=== PATIENT | female | born 1975 | race African-American/Black ===

== ENCOUNTER 2018-04-04 18:59 | Inpatient (IN) | payer SELFPAY ==
[~2018-04-04] VITALS: Ht 157.5 cm; Wt 100.4 kg
[2018-04-04 20:04] LABS: Basophils # (auto) 0 uL; Basophils % (auto) 0.6 % (0.0-2.0); Eosinophils # (auto) 0.1 uL; Eosinophils % (auto) 0.8 % (0.0-7.0); Hematocrit 38.1 % (36.0-46.0); Lymphocytes # (auto) 3.3 uL; Lymphocytes % (auto) 46.8 % (10.0-50.0); Mean Corpuscular Hemoglobin 33.9 pg (28.0-32.0); Mean Corpuscular Hgb Conc. 34.2 g/dL (32.0-36.0); Mean Corpuscular Volume 99.2 fL (80.0-100.0); Monocytes # (auto) 0.5 uL; Monocytes % (auto) 6.6 % (0.0-12.0); Neutrophils # (auto) 3.2 uL; Neutrophils % (auto) 45.2 % (37.0-80.0); Nucleated Red Blood Cells % 0.3 %; Platelet Count (auto) 283 10^3/uL (140-450); Red Blood Cells 3.84 10^6/uL (4.0-5.20); Red Cell Distribution Width 12.7 % (11.8-14.3); White Blood Cell 7.1 10^3/uL (4.4-10.8)
[2018-04-04 20:12] LABS: Alanine Aminotransferase 16 U/L (13-56); Albumin 3.6 g/dL (3.4-5.0); Anion Gap 11 (5-15); Aspartate Aminotransferase 17 U/L (15-37); BUN/Creatinine Ratio 14.1; Blood Urea Nitrogen 12 mg/dL (7-18); Calcium 8.4 mg/dL (8.5-10.1); Carbon Dioxide 24 mmol/L (21-32); Chloride 107 mmol/L (98-107); GFR African American 93 mL/min; GFR Non-African American 77 mL/min; Glucose 102 mg/dL (74-106); Magnesium 2.2 mg/dL (1.6-2.6); Potassium 3.4 mmol/L (3.5-5.1); Sodium 142 mmol/L (136-145)
[2018-04-04 20:17] LABS: Alkaline Phosphatase 96 U/L (45-117); Bilirubin, Total 0.6 mg/dL (0.2-1.0)
[2018-04-04] MEDS ORDERED: ASPirin 81 mg TAB PO ONE (20:45)
[2018-04-04] MEDS ORDERED: IOHEXOL 350 MG/ML 100ML IJ ONE (21:14)
[2018-04-04] MEDS ORDERED: KETOROLAC TROMETH 30 MG/ML 1ML VIAL IV ONE (21:15)
[2018-04-04 21:35] LABS: INR 1.03 (0.9-1.15); Partial Thromboplastin Time 27.3 sec (23.78-33.04)
[2018-04-04 23:18] LABS: Amylase 61 U/L (25-115); Lipase 152 U/L (73-393)
[2018-04-05] MEDS ORDERED: ONDANSETRON HCL 4 MG/2 ML VIAL IV ONE (01:15)
[2018-04-05] MEDS ORDERED: HYDROmorphone HCL 2 MG/ML VL IV ONE (01:15)
[2018-04-05] MEDS ORDERED: ONDANSETRON HCL 4 MG/2 ML VIAL IV PRN (02:00)
[2018-04-05] MEDS ORDERED: ACETAMINOPHEN 325 MG TAB PO PRN (02:00)
[2018-04-05] MEDS ORDERED: HYDROcodone-ACET 5/325MG TAB PO PRN (02:00)
[2018-04-05] MEDS ORDERED: TEMAZEPAM 15 MG CAP PO PRN (02:00)
[2018-04-05 09:00] VITALS: BP 93/59
[2018-04-05] MEDS: FAMOTIDINE 20 MG TAB PO SCH ×2 (10:00→21:54)
[2018-04-05] MEDS ORDERED: MORPHINE SULF INJ 2 MG/ML SYRINGE 1ML ONE (11:06)
[2018-04-05 13:00] VITALS: BP 119/60
[2018-04-05 17:00] VITALS: BP 120/62
[2018-04-05] MEDS ORDERED: PHEN32.49 PO (20:56)
[2018-04-05 22:00] VITALS: BP 102/60
[2018-04-06 05:00] VITALS: BP 95/65
[2018-04-06 05:18] LABS: Basophils # (auto) 0 uL; Eosinophils # (auto) 0.1 uL; Hemoglobin 13.5 g/dL (12.2-16.2)
[2018-04-06 05:21] LABS: Basophils % (auto) 0.7 % (0.0-2.0); Eosinophils % (auto) 1.7 % (0.0-7.0); Hematocrit 39.3 % (36.0-46.0); Lymphocytes # (auto) 2.2 uL; Lymphocytes % (auto) 43.1 % (10.0-50.0); Mean Corpuscular Hemoglobin 34.8 pg (28.0-32.0); Mean Corpuscular Hgb Conc. 34.5 g/dL (32.0-36.0); Mean Corpuscular Volume 100.9 fL (80.0-100.0); Monocytes # (auto) 0.4 uL; Monocytes % (auto) 8.3 % (0.0-12.0); Neutrophils # (auto) 2.3 uL; Neutrophils % (auto) 46.2 % (37.0-80.0); Nucleated Red Blood Cells % 0.2 %; Platelet Count (auto) 274 10^3/uL (140-450); Red Blood Cells 3.89 10^6/uL (4.0-5.20); Red Cell Distribution Width 12.8 % (11.8-14.3)
[2018-04-06 05:36] LABS: Albumin 3.2 g/dL (3.4-5.0); Calcium 8.4 mg/dL (8.5-10.1)
[2018-04-06 05:38] LABS: BUN/Creatinine Ratio 19.4
[2018-04-06 05:41] LABS: Bilirubin, Total 0.7 mg/dL (0.2-1.0); Total Protein 7.2 g/dL (6.4-8.2)
[2018-04-06 09:00] VITALS: BP 120/76
== END 2018-04-06 11:00 | disposition left against medical advice (07) | DRG 445 ==
LOC: ER 18:59 → OVERFLOW 19:00 → WEST WING 04-05 08:23
PROVIDERS: ADMIT Nurse Practitioner; ATTEND Internal Medicine
DX: K80.10 Calculus of gallbladder with chronic cholecystitis without obstruction (principal); Z68.41 Body mass index [BMI] 40.0-44.9, adult; Z88.8 Allergy status to other drugs, medicaments and biological substances; E66.9 Obesity, unspecified; G40.909 Epilepsy, unspecified, not intractable, without status epilepticus; R07.9 Chest pain, unspecified
CPT/HCPCS: 36415; 71046; 71275; 76705; 78226; 80053; 82150; 83690; 83735; 83880; 84443; 84484; 85025; 85379; 85610; 85730; 93005; 96374; 96375; J1885; J2405

== ENCOUNTER 2018-09-24 08:17 | Emergency (ER) | payer BC, OTHER ==
[~2018-09-24] VITALS: Ht 157.5 cm; Wt 81.6 kg
[~2018-09-24 08:17] MED LIST: PHEN32.49 PO
[2018-09-24 08:28] VITALS: BP 131/77
== END 2018-09-24 13:34 | disposition left against medical advice (07) ==
LOC: ER 08:17
DX: R56.9 Unspecified convulsions (principal); Z53.21 Procedure and treatment not carried out due to patient leaving prior to being seen by health care provider

== ENCOUNTER 2019-12-29 23:06 | Emergency (ER) | payer SELFPAY ==
[~2019-12-29] VITALS: Ht 157.5 cm; Wt 90.7 kg
[~2019-12-29 23:06] MED LIST changes: +PHEN32.44 PO; -PHEN32.49 PO
[2019-12-29] MEDS ORDERED: LORazepam 2MG/ML-1ML VIAL IV ONE ×2 (23:15→23:45)
[2019-12-29 23:23] LABS: Basophils # (auto) 0.1 10 ^3/uL (0-0.2); Basophils % (auto) 0.9 % (0.0-2.0); Eosinophils # (auto) 0.1 10 ^3/uL (0-0.8); Eosinophils % (auto) 0.9 % (0.0-7.0); Hematocrit 40.4 % (36.0-46.0); Hemoglobin 13.9 g/dL (12.2-16.2); Lymphocytes # (auto) 3.5 10 ^3/uL (0.4-5.4); Lymphocytes % (auto) 40.1 % (10.0-50.0); Mean Corpuscular Hemoglobin 34.6 pg (28.0-32.0); Mean Corpuscular Hgb Conc. 34.5 g/dL (32.0-36.0); Mean Corpuscular Volume 100.1 fL (80.0-100.0); Monocytes # (auto) 0.7 10 ^3/uL (0-1.3); Monocytes % (auto) 8.2 % (0.0-12.0); Neutrophils # (auto) 4.3 10 ^3/uL (1.6-8.6); Neutrophils % (auto) 49.9 % (37.0-80.0); Platelet Count (auto) 281 10^3/uL (140-450); Red Blood Cells 4.03 10^6/uL (4.0-5.20); Red Cell Distribution Width 12.9 % (11.8-14.3); White Blood Cell 8.7 10^3/uL (4.4-10.8)
[2019-12-29] MEDS ORDERED: LORazepam 2MG/ML-1ML VIAL ONE (23:34)
[2019-12-29] MEDS ORDERED: levETIRAcetam 500 MG/5ML INJ IV ONE (23:37)
[2019-12-29 23:46] LABS: Albumin 3.9 g/dL (3.4-5.0); BUN/Creatinine Ratio 14.8; Calcium 8.8 mg/dL (8.5-10.1); Magnesium 2.2 mg/dL (1.6-2.6); Potassium 3.6 mmol/L (3.5-5.1)
[2019-12-29 23:50] LABS: Bilirubin, Total 0.5 mg/dL (0.2-1.0); Total Protein 8.1 g/dL (6.4-8.2)
[2019-12-30 01:53] LABS: Urine Bacteria FEW /hpf (None Seen); Urine Blood Negative /uL (Negative); Urine Hyaline Cast FEW /lpf (0 - 2); Urine Mucus FEW (None Seen); Urine Specific Gravity 1.029 (1.001-1.035); Urine WBC 1 /hpf (0 - 5)
[2019-12-30 03:15] VITALS: BP 105/62
== END 2019-12-30 04:22 | disposition home or self-care (01) ==
LOC: ER 23:07
DX: R56.9 Unspecified convulsions (principal)
CPT/HCPCS: 36415; 70450; 71045; 80053; 81001; 83735; 84702; 85025; 96365; 96375; 99285; J1953; J2060; J7060

== ENCOUNTER → 2020-05-04 | Outpatient (CLI) | payer OTHER ==
[2020-05-04 13:09] LABS: Basophils # (auto) 0 10 ^3/uL (0-0.2); Basophils % (auto) 0.7 % (0.0-2.0); Eosinophils # (auto) 0.1 10 ^3/uL (0-0.8); Eosinophils % (auto) 1.7 % (0.0-7.0); Hematocrit 41.6 % (36.0-46.0); Lymphocytes # (auto) 2.1 10 ^3/uL (0.4-5.4); Lymphocytes % (auto) 41.3 % (10.0-50.0); Mean Corpuscular Hemoglobin 33.5 pg (28.0-32.0); Mean Corpuscular Hgb Conc. 33.7 g/dL (32.0-36.0); Mean Corpuscular Volume 99.6 fL (80.0-100.0); Monocytes # (auto) 0.3 10 ^3/uL (0-1.3); Monocytes % (auto) 6.4 % (0.0-12.0); Neutrophils # (auto) 2.6 10 ^3/uL (1.6-8.6); Neutrophils % (auto) 49.9 % (37.0-80.0); Nucleated Red Blood Cells % 0.1 %; Platelet Count (auto) 311 10^3/uL (140-450); Red Blood Cells 4.18 10^6/uL (4.0-5.20); Red Cell Distribution Width 13.4 % (11.8-14.3); White Blood Cell 5.2 10^3/uL (4.4-10.8)
[2020-05-04 13:15] LABS: Urine Bacteria NONE SEEN /hpf (None Seen); Urine Blood 1+ /uL (Negative); Urine Mucus FEW (None Seen); Urine Specific Gravity 1.027 (1.001-1.035); Urine WBC 4 /hpf (0 - 5)
[2020-05-04 13:48] LABS: Potassium 3.5 mmol/L (3.5-5.1)
[2020-05-04 13:56] LABS: Albumin 4.3 g/dL (3.4-5.0); BUN/Creatinine Ratio 18.6; Bilirubin, Total 0.7 mg/dL (0.2-1.0); Calcium 9.3 mg/dL (8.5-10.1); Total Protein 8.5 g/dL (6.4-8.2)
== END | disposition home or self-care (01) ==
LOC: LAB 12:31
PROVIDERS: ATTEND Student in an Organized Health Care Education/Training Program
DX: R63.1 Polydipsia (principal); R60.0 Localized edema; R73.9 Hyperglycemia, unspecified; R00.2 Palpitations
CPT/HCPCS: 36415; 80053; 80061; 81001; 83036; 83880; 84443; 85025; 87086

== ENCOUNTER → 2020-05-28 | Outpatient (CLI) | payer OTHER | END | disposition home or self-care (01) | LOC: LAB 10:03 | PROVIDERS: ATTEND Student in an Organized Health Care Education/Training Program | DX: M62.838 Other muscle spasm (principal); E55.9 Vitamin D deficiency, unspecified; R56.9 Unspecified convulsions | CPT/HCPCS: 36415; 80184; 82306; 82607; 83735 ==

== ENCOUNTER → 2020-08-27 | Outpatient (CLI) | payer OTHER ==
[2020-08-27 13:02] LABS: Urine Amorphous Crystal FEW /hpf (None Seen); Urine Bacteria NONE SEEN /hpf (None Seen); Urine Blood 2+ /uL (Negative); Urine Specific Gravity 1.019 (1.001-1.035); Urine WBC 7 /hpf (0 - 5)
[2020-08-27 13:29] LABS: Albumin 3.5 g/dL (3.4-5.0); Potassium 3.9 mmol/L (3.5-5.1)
[2020-08-27 13:31] LABS: BUN/Creatinine Ratio 15.8; Bilirubin, Total 0.5 mg/dL (0.2-1.0); Total Protein 7.9 g/dL (6.4-8.2)
== END | disposition home or self-care (01) ==
LOC: LAB 12:28
PROVIDERS: ATTEND Student in an Organized Health Care Education/Training Program
DX: R10.11 Right upper quadrant pain (principal); E55.9 Vitamin D deficiency, unspecified; M25.50 Pain in unspecified joint; R30.0 Dysuria
CPT/HCPCS: 36415; 80053; 81001; 82306; 83690; 85652; 86431; 87086; 87088; 87186

== ENCOUNTER → 2020-08-30 | Outpatient (CLI) | payer OTHER | END | disposition home or self-care (01) | LOC: XYW 08:47 | PROVIDERS: ATTEND Internal Medicine | DX: I07.1 Rheumatic tricuspid insufficiency (principal); R07.9 Chest pain, unspecified | CPT/HCPCS: 93306 ==

== ENCOUNTER → 2020-09-07 | Outpatient (CLI) | payer OTHER | END | disposition home or self-care (01) | LOC: XYW 09:07 | PROVIDERS: ATTEND Student in an Organized Health Care Education/Training Program | DX: S83.222A Peripheral tear of medial meniscus, current injury, left knee, initial encounter (principal); M79.4 Hypertrophy of (infrapatellar) fat pad; R60.0 Localized edema; M25.562 Pain in left knee; M25.462 Effusion, left knee; X58.XXXA Exposure to other specified factors, initial encounter; Y93.89 Activity, other specified; Y92.89 Other specified places as the place of occurrence of the external cause; Y99.8 Other external cause status | CPT/HCPCS: 73721 ==

== ENCOUNTER 2020-10-16 11:38 | Emergency (ER) | payer OTHER ==
[~2020-10-16] VITALS: Ht 157.5 cm; Wt 98.9 kg
[2020-10-16 11:39] VITALS: BP 132/79
[2020-10-16] MEDS ORDERED: HYDROcodone-ACET 10/325MG TAB PO ONE (13:15)
[2020-10-16] MEDS ORDERED: KETOROLAC TROMETH 60MG/2ML VIAL IM ONE (13:15)
== END 2020-10-16 13:58 | disposition home or self-care (01) ==
LOC: ER 11:38
DX: M54.5 Low back pain (principal); G89.29 Other chronic pain; M54.16 Radiculopathy, lumbar region; E66.01 Morbid (severe) obesity due to excess calories; Z68.39 Body mass index [BMI] 39.0-39.9, adult; Z88.8 Allergy status to other drugs, medicaments and biological substances; Z79.899 Other long term (current) drug therapy
CPT/HCPCS: 96372; 99283; J1885

== ENCOUNTER → 2020-11-10 | Outpatient (CLI) | payer OTHER | END | disposition home or self-care (01) | LOC: LAB 09:31 | PROVIDERS: ATTEND Student in an Organized Health Care Education/Training Program | DX: R30.0 Dysuria (principal) | CPT/HCPCS: 87086 ==

== ENCOUNTER 2020-12-20 17:26 | Emergency (ER) | payer OTHER ==
[~2020-12-20] VITALS: Ht 157.5 cm; Wt 79.4 kg
[2020-12-20 17:26] VITALS: BP 127/80
[2020-12-20 18:45] LABS: Basophils # (auto) 0.1 10 ^3/uL (0-0.2); Basophils % (auto) 0.4 % (0.0-2.0); Eosinophils # (auto) 0 10 ^3/uL (0-0.8); Eosinophils % (auto) 0.3 % (0.0-7.0); Hematocrit 39.3 % (36.0-46.0); Hemoglobin 13.5 g/dL (12.2-16.2); Lymphocytes # (auto) 2.3 10 ^3/uL (0.4-5.4); Lymphocytes % (auto) 15.7 % (10.0-50.0); Mean Corpuscular Hemoglobin 33.2 pg (28.0-32.0); Mean Corpuscular Hgb Conc. 34.3 g/dL (32.0-36.0); Mean Corpuscular Volume 96.9 fL (80.0-100.0); Monocytes # (auto) 0.7 10 ^3/uL (0-1.3); Neutrophils # (auto) 11.3 10 ^3/uL (1.6-8.6); Neutrophils % (auto) 78.6 % (37.0-80.0); Red Blood Cells 4.05 10^6/uL (4.0-5.20); Red Cell Distribution Width 13.3 % (11.8-14.3); White Blood Cell 14.4 10^3/uL (4.4-10.8)
[2020-12-20 19:02] LABS: Calcium 9.2 mg/dL (8.5-10.1); Potassium 3.6 mmol/L (3.5-5.1)
[2020-12-20 19:07] LABS: Bilirubin, Total 1.4 mg/dL (0.2-1.0); Total Protein 7.9 g/dL (6.4-8.2)
[2020-12-20 20:09] LABS: Urine Bacteria FEW /hpf (None Seen); Urine Blood 1+ /uL (Negative); Urine Mucus FEW (None Seen); Urine Specific Gravity 1.022 (1.001-1.035); Urine WBC 15 /hpf (0 - 5)
== END 2020-12-20 22:02 | disposition home or self-care (01) ==
LOC: ER 17:26
DX: N39.0 Urinary tract infection, site not specified (principal); D21.9 Benign neoplasm of connective and other soft tissue, unspecified; Z79.899 Other long term (current) drug therapy; Z88.8 Allergy status to other drugs, medicaments and biological substances
CPT/HCPCS: 36415; 74176; 80053; 81001; 81025; 83690; 85025

== ENCOUNTER 2021-03-05 09:09 | Emergency (ER) | payer OTHER ==
[~2021-03-05] VITALS: Ht 157.5 cm; Wt 95.3 kg
[2021-03-05 10:52] VITALS: BP 122/80
[2021-03-05] MEDS ORDERED: KETOROLAC TROMETH 60MG/2ML VIAL IM ONE (11:00)
== END 2021-03-05 11:29 | disposition home or self-care (01) ==
LOC: ER 09:09
DX: K64.4 Residual hemorrhoidal skin tags (principal); K59.00 Constipation, unspecified; Z88.8 Allergy status to other drugs, medicaments and biological substances
CPT/HCPCS: 74018; 96372; 99283; J1885

== ENCOUNTER 2021-09-05 07:53 | Emergency (ER) | payer OTHER ==
[~2021-09-05] VITALS: Ht 157.5 cm; Wt 78.0 kg
[2021-09-05 08:44] VITALS: BP 128/89
[2021-09-05] MEDS ORDERED: POLYSOL15 OP (09:50)
== END 2021-09-05 09:58 | disposition home or self-care (01) ==
LOC: ER 07:53
DX: H10.31 Unspecified acute conjunctivitis, right eye (principal)

== ENCOUNTER 2021-10-19 11:03 | Emergency (ER) | payer OTHER ==
[~2021-10-19] VITALS: Ht 157.5 cm; Wt 68.0 kg
[2021-10-19 11:03] VITALS: BP 119/46
[~2021-10-19 11:03] MED LIST changes: +POLYSOL15 OP
== END 2021-10-19 14:55 | disposition left against medical advice (07) ==
LOC: ER 11:03
DX: R07.89 Other chest pain (principal); Z53.21 Procedure and treatment not carried out due to patient leaving prior to being seen by health care provider
CPT/HCPCS: 93005

== ENCOUNTER 2021-12-19 05:12 | Emergency (ER) | payer OTHER ==
[~2021-12-19] VITALS: Ht 157.5 cm; Wt 103.0 kg
[2021-12-19] MEDS ORDERED: DexAMETHasone SOD PHOS 10MG/1ML VIAL INJ IM ONE (07:30)
[2021-12-19] MEDS ORDERED: PERCOT PO (09:17)
[2021-12-19] MEDS ORDERED: ONDA-144 PO (09:17)
[2021-12-19] MEDS ORDERED: PRED20TA2 PO (09:17)
[2021-12-19 09:33] VITALS: BP 99/57
== END 2021-12-19 09:34 | disposition home or self-care (01) ==
LOC: ER 05:12
DX: M72.2 Plantar fascial fibromatosis (principal); M79.672 Pain in left foot; M79.671 Pain in right foot; Z79.899 Other long term (current) drug therapy; Z88.8 Allergy status to other drugs, medicaments and biological substances
CPT/HCPCS: 96372; 99283; J1100

== ENCOUNTER 2022-03-06 06:11 | Emergency (ER) | payer OTHER ==
[~2022-03-06] VITALS: Ht 157.5 cm; Wt 72.7 kg
[~2022-03-06 06:11] MED LIST changes: +ONDA-144 PO; +PERCOT PO; +PRED20TA2 PO
[2022-03-06 07:41] LABS: Basophils # (auto) 0 10 ^3/uL (0-0.2); Basophils % (auto) 0.8 % (0.0-2.0); Eosinophils # (auto) 0.1 10 ^3/uL (0-0.8); Eosinophils % (auto) 1.2 % (0.0-7.0); Hematocrit 38.7 % (36.0-46.0); Hemoglobin 12.8 g/dL (12.2-16.2); Lymphocytes % (auto) 44.3 % (10.0-50.0); Mean Corpuscular Hemoglobin 32.7 pg (28.0-32.0); Mean Corpuscular Hgb Conc. 33.1 g/dL (32.0-36.0); Mean Corpuscular Volume 98.9 fL (80.0-100.0); Monocytes # (auto) 0.3 10 ^3/uL (0-1.3); Monocytes % (auto) 7.1 % (0.0-12.0); Neutrophils # (auto) 2.1 10 ^3/uL (1.6-8.6); Neutrophils % (auto) 46.6 % (37.0-80.0); Red Blood Cells 3.91 10^6/uL (4.0-5.20); White Blood Cell 4.5 10^3/uL (4.4-10.8)
[2022-03-06 07:48] LABS: Albumin 3.8 g/dL (3.4-5.0); Calcium 8.7 mg/dL (8.5-10.1); Potassium 3.9 mmol/L (3.5-5.1)
[2022-03-06 07:54] LABS: BUN/Creatinine Ratio 20.6; Bilirubin, Total 0.8 mg/dL (0.2-1.0)
[2022-03-06] MEDS: ASPirin 81 mg TAB PO ONE (08:02)
[2022-03-06 08:44] LABS: Urine Amorphous Crystal MOD /hpf (None Seen); Urine Bacteria MANY /hpf (None Seen); Urine Blood 3+ /uL (Negative); Urine Mucus FEW (None Seen); Urine Specific Gravity 1.023 (1.001-1.035); Urine WBC 3 /hpf (0 - 5)
[2022-03-06] MEDS: SODIUM CHLORIDE 0.9% 1,000 ML IVB ONE (08:56)
[2022-03-06] MEDS: IOHEXOL 350 MG/ML 100ML IJ ONE (10:02)
[2022-03-06] MEDS: MORPHINE SULFATE 4 MG/ML SYR/VIAL IV ONE (11:51)
[2022-03-06] MEDS: ONDANSETRON HCL 4 MG/2 ML VIAL IV ONE (11:51)
[2022-03-06 12:21] VITALS: BP 103/54
[2022-03-06] MEDS ORDERED: TRAM-297 PO (13:01)
[2022-03-06] MEDS ORDERED: NITR-87 PO (13:01)
== END 2022-03-06 14:07 | disposition home or self-care (01) ==
LOC: ER 06:11
DX: R07.89 Other chest pain (principal); N39.0 Urinary tract infection, site not specified; Z88.8 Allergy status to other drugs, medicaments and biological substances; Z20.822 Contact with and (suspected) exposure to COVID-19
CPT/HCPCS: 36415; 71046; 71275; 80053; 81001; 84484; 85025; 85379; 87426; 93005; 96361; 96374; 96375; 99285; J2270; J2405; J7030; Q9967

== ENCOUNTER 2022-05-31 20:22 | Emergency (ER) | payer OTHER ==
[~2022-05-31] VITALS: Ht 157.5 cm; Wt 78.0 kg
[~2022-05-31 20:22] MED LIST changes: +NITR-87 PO; +TRAM-297 PO
[2022-05-31 20:50] VITALS: BP 115/72
[2022-05-31 21:18] LABS: Basophils # (auto) 0.1 10 ^3/uL (0-0.2); Basophils % (auto) 1.6 % (0.0-2.0); Eosinophils # (auto) 0 10 ^3/uL (0-0.8); Eosinophils % (auto) 0.4 % (0.0-7.0); Hematocrit 39.9 % (36.0-46.0); Hemoglobin 13.3 g/dL (12.2-16.2); Lymphocytes # (auto) 2.3 10 ^3/uL (0.4-5.4); Lymphocytes % (auto) 31.5 % (10.0-50.0); Mean Corpuscular Hemoglobin 33.2 pg (28.0-32.0); Mean Corpuscular Hgb Conc. 33.2 g/dL (32.0-36.0); Monocytes # (auto) 0.5 10 ^3/uL (0-1.3); Monocytes % (auto) 7.4 % (0.0-12.0); Neutrophils # (auto) 4.4 10 ^3/uL (1.6-8.6); Neutrophils % (auto) 59.1 % (37.0-80.0); Nucleated Red Blood Cells % 0.2 %; Red Blood Cells 3.99 10^6/uL (4.0-5.20); Red Cell Distribution Width 13.1 % (11.8-14.3); White Blood Cell 7.4 10^3/uL (4.4-10.8)
[2022-05-31 21:34] LABS: Albumin 4.2 g/dL (3.4-5.0); Calcium 9.1 mg/dL (8.5-10.1); Potassium 3.4 mmol/L (3.5-5.1)
[2022-05-31 21:36] LABS: INR 1.08 (0.9-1.15); Partial Thromboplastin Time 27.2 sec (24.6-33.4)
[2022-05-31 21:39] LABS: BUN/Creatinine Ratio 18.6; Total Protein 8.2 g/dL (6.4-8.2)
[2022-05-31 21:41] LABS: Urine Bacteria NONE SEEN /hpf (None Seen); Urine Blood TRACE /uL (Negative); Urine Mucus FEW (None Seen); Urine WBC 4 /hpf (0 - 5)
[2022-06-01] MEDS ORDERED: POTASSIUM EFFERVESENT TAB 25 MEQ PO ONE (00:45)
== END 2022-06-01 01:15 | disposition left against medical advice (07) ==
LOC: ER 20:22
DX: R07.89 Other chest pain (principal); R06.02 Shortness of breath; Z53.21 Procedure and treatment not carried out due to patient leaving prior to being seen by health care provider
CPT/HCPCS: 36415; 71045; 80053; 81001; 83880; 84484; 85025; 85610; 85730; 93005

== ENCOUNTER 2022-06-04 06:20 | Emergency (ER) | payer OTHER ==
[~2022-06-04] VITALS: Ht 157.5 cm; Wt 80.0 kg
[2022-06-04] MEDS ORDERED: ASPirin 325 MG TAB PO ONE (06:45)
[2022-06-04 08:11] LABS: Basophils # (auto) 0 10 ^3/uL (0-0.2); Eosinophils # (auto) 0 10 ^3/uL (0-0.8); Eosinophils % (auto) 0.7 % (0.0-7.0); Hemoglobin 13.3 g/dL (12.2-16.2); Lymphocytes # (auto) 1.8 10 ^3/uL (0.4-5.4); Lymphocytes % (auto) 43.7 % (10.0-50.0); Mean Corpuscular Hemoglobin 32.6 pg (28.0-32.0); Mean Corpuscular Hgb Conc. 33.2 g/dL (32.0-36.0); Monocytes # (auto) 0.3 10 ^3/uL (0-1.3); Monocytes % (auto) 6.6 % (0.0-12.0); Nucleated Red Blood Cells % 0.1 %; Red Blood Cells 4.08 10^6/uL (4.0-5.20); Red Cell Distribution Width 13.1 % (11.8-14.3); White Blood Cell 4.1 10^3/uL (4.4-10.8)
[2022-06-04 08:22] LABS: INR 1.03 (0.9-1.15); Partial Thromboplastin Time 27.8 sec (24.6-33.4)
[2022-06-04 08:32] LABS: Albumin 3.7 g/dL (3.4-5.0); BUN/Creatinine Ratio 13.3; Calcium 9.1 mg/dL (8.5-10.1); Potassium 3.5 mmol/L (3.5-5.1)
[2022-06-04 08:39] LABS: Bilirubin, Total 0.7 mg/dL (0.2-1.0); Total Protein 7.2 g/dL (6.4-8.2)
[2022-06-04 11:55] LABS: Urine Amorphous Crystal FEW /hpf (None Seen); Urine Bacteria FEW /hpf (None Seen); Urine Blood Negative /uL (Negative); Urine Mucus FEW (None Seen); Urine Specific Gravity 1.018 (1.001-1.035); Urine WBC 3 /hpf (0 - 5)
[2022-06-04 13:25] VITALS: BP 134/79
== END 2022-06-04 13:28 | disposition home or self-care (01) ==
LOC: ER 06:20
DX: R07.89 Other chest pain (principal); R10.9 Unspecified abdominal pain; Z88.8 Allergy status to other drugs, medicaments and biological substances
CPT/HCPCS: 36415; 71045; 74176; 80053; 81001; 83880; 84484; 85025; 85610; 85730; 93005

== ENCOUNTER → 2022-09-04 | Outpatient (CLI) | payer OTHER ==
[2022-09-04 12:57] LABS: Basophils # (auto) 0 10 ^3/uL (0-0.2); Basophils % (auto) 0.9 % (0.0-2.0); Eosinophils # (auto) 0.1 10 ^3/uL (0-0.8); Eosinophils % (auto) 1.7 % (0.0-7.0); Hematocrit 37.8 % (36.0-46.0); Lymphocytes % (auto) 42.4 % (10.0-50.0); Mean Corpuscular Hgb Conc. 34.4 g/dL (32.0-36.0); Mean Corpuscular Volume 98.9 fL (80.0-100.0); Monocytes # (auto) 0.4 10 ^3/uL (0-1.3); Monocytes % (auto) 8.2 % (0.0-12.0); Neutrophils # (auto) 2.2 10 ^3/uL (1.6-8.6); Neutrophils % (auto) 46.8 % (37.0-80.0); Nucleated Red Blood Cells % 0.2 %; Red Blood Cells 3.82 10^6/uL (4.0-5.20); Red Cell Distribution Width 13.2 % (11.8-14.3); White Blood Cell 4.7 10^3/uL (4.4-10.8)
[2022-09-04 13:51] LABS: Follicle Stimulating Hormone 19.2 IU/L (SEE BELOW); Leuteinizing Hormone 4.1 IU/L
== END | disposition home or self-care (01) ==
LOC: LAB 12:40
PROVIDERS: ATTEND Obstetrics & Gynecology
DX: N93.9 Abnormal uterine and vaginal bleeding, unspecified (principal)
CPT/HCPCS: 36415; 83001; 83002; 84403; 84443; 85025

== ENCOUNTER 2022-10-14 20:22 | Emergency (ER) | payer OTHER ==
[~2022-10-14] VITALS: Ht 157.5 cm; Wt 103.7 kg
[2022-10-14 21:32] LABS: Basophils # (auto) 0.1 10 ^3/uL (0-0.2); Basophils % (auto) 0.6 % (0.0-2.0); Eosinophils # (auto) 0 10 ^3/uL (0-0.8); Eosinophils % (auto) 0.2 % (0.0-7.0); Hematocrit 38.9 % (36.0-46.0); Hemoglobin 13.2 g/dL (12.2-16.2); Lymphocytes # (auto) 1.9 10 ^3/uL (0.4-5.4); Lymphocytes % (auto) 23.5 % (10.0-50.0); Mean Corpuscular Hemoglobin 33.2 pg (28.0-32.0); Mean Corpuscular Volume 97.6 fL (80.0-100.0); Monocytes # (auto) 0.4 10 ^3/uL (0-1.3); Monocytes % (auto) 5.3 % (0.0-12.0); Neutrophils # (auto) 5.6 10 ^3/uL (1.6-8.6); Neutrophils % (auto) 70.4 % (37.0-80.0); Nucleated Red Blood Cells % 0.1 %; Red Blood Cells 3.99 10^6/uL (4.0-5.20); Red Cell Distribution Width 13.1 % (11.8-14.3)
[2022-10-14 21:47] LABS: Urine Bacteria NONE SEEN /hpf (None Seen); Urine Blood TRACE /uL (Negative); Urine Specific Gravity 1.019 (1.001-1.035); Urine WBC 1 /hpf (0 - 5)
[2022-10-14 21:51] LABS: Calcium 9.3 mg/dL (8.5-10.1); Potassium 3.7 mmol/L (3.5-5.1)
[2022-10-14 21:56] LABS: Bilirubin, Total 0.4 mg/dL (0.2-1.0); Total Protein 8.2 g/dL (6.4-8.2)
[2022-10-15] MEDS ORDERED: HYDROcodone-ACET 10/325MG TAB PO ONE (01:15)
[2022-10-15] MEDS ORDERED: IBUPROFEN 800 MG TAB PO ONE (01:15)
[2022-10-15] MEDS ORDERED: HYDR-4798 PO (01:33)
[2022-10-15] MEDS ORDERED: IBUP800T26 PO (01:33)
[2022-10-15] MEDS ORDERED: CLIN2CRE7 VG (01:33)
[2022-10-15] MEDS ORDERED: METR500T14 PO (01:33)
[2022-10-15 02:16] VITALS: BP 127/75
== END 2022-10-15 02:17 | disposition home or self-care (01) ==
LOC: ER 20:22
DX: N76.0 Acute vaginitis (principal); A59.01 Trichomonal vulvovaginitis; Z88.8 Allergy status to other drugs, medicaments and biological substances; Z79.899 Other long term (current) drug therapy; Z87.442 Personal history of urinary calculi
CPT/HCPCS: 36415; 80053; 81001; 84484; 85025; 87210; 93005

== ENCOUNTER 2022-11-22 06:12 | Inpatient (IN) | payer OTHER ==
[2022-11-21 12:21] LABS: Basophils # (auto) 0.1 10 ^3/uL (0-0.2); Basophils % (auto) 1.3 % (0.0-2.0); Eosinophils # (auto) 0.1 10 ^3/uL (0-0.8); Eosinophils % (auto) 2.6 % (0.0-7.0); Hematocrit 37.5 % (36.0-46.0); Hemoglobin 12.7 g/dL (12.2-16.2); Lymphocytes # (auto) 1.9 10 ^3/uL (0.4-5.4); Mean Corpuscular Hemoglobin 33.4 pg (28.0-32.0); Mean Corpuscular Hgb Conc. 33.8 g/dL (32.0-36.0); Monocytes # (auto) 0.4 10 ^3/uL (0-1.3); Monocytes % (auto) 8.3 % (0.0-12.0); Neutrophils # (auto) 2.4 10 ^3/uL (1.6-8.6); Neutrophils % (auto) 48.8 % (37.0-80.0); Nucleated Red Blood Cells % 0.2 %; Red Blood Cells 3.79 10^6/uL (4.0-5.20)
[2022-11-21 12:43] LABS: INR 1.03 (0.9-1.15); Partial Thromboplastin Time 28.6 sec (24.6-33.4)
[2022-11-21 12:50] LABS: Urine Bacteria NONE SEEN /hpf (None Seen); Urine Blood 2+ /uL (Negative); Urine Mucus FEW (None Seen); Urine Specific Gravity 1.033 (1.001-1.035); Urine WBC 8 /hpf (0 - 5)
[2022-11-21 12:57] LABS: Potassium 3.8 mmol/L (3.5-5.1)
[2022-11-21 13:04] LABS: BUN/Creatinine Ratio 20.2 (10.0-20.0); Bilirubin, Total 0.5 mg/dL (0.2-1.0); Calcium 8.7 mg/dL (8.5-10.1); Total Protein 7.5 g/dL (6.4-8.2)
[~2022-11-22] VITALS: Ht 157.5 cm; Wt 110.1 kg
[~2022-11-22 06:12] MED LIST changes: +HYDR-4798 PO; -NITR-87 PO; -ONDA-144 PO; -PERCOT PO; -POLYSOL15 OP; -PRED20TA2 PO; -TRAM-297 PO
[2022-11-22] MEDS ORDERED: ceFAZolin 1GM/50ML 100 ML IV ONE (06:21)
[2022-11-22] MEDS ORDERED: DexAMETHasone SOD PHOS 4 MG/1ML SDV INJ ONE (06:26)
[2022-11-22] MEDS ORDERED: BUPIVACAINE W/ EPINEPH 0.25% INJ 50ML MDV ONE (06:26)
[2022-11-22] MEDS ORDERED: PROPOFOL 10 MG/ML 20 ML IV ONE (06:40)
[2022-11-22] MEDS ORDERED: ONDANSETRON HCL 4 MG/2 ML VIAL ONE (06:41)
[2022-11-22] MEDS ORDERED: DexAMETHasone SOD PHOS 10MG/1ML VIAL INJ ONE (06:41)
[2022-11-22] MEDS ORDERED: GLYCOPYRROLATE 0.2 MG/ML 1ML VIAL ONE (06:41)
[2022-11-22] MEDS ORDERED: KETOROLAC TROMETH 30 MG/ML 1ML VIAL ONE (06:41)
[2022-11-22] MEDS ORDERED: LIDOCAINE 2% (LOCAL ANESTH.) PF 5ml SDV ONE (06:41)
[2022-11-22] MEDS ORDERED: ROCURONIUM 10MG/ML 10ML VIAL IV ONE (06:41)
[2022-11-22] MEDS ORDERED: SUGAMMADEX 200mg/2ml Vial (100MG/ML) IV ONE (06:44)
[2022-11-22] MEDS ORDERED: fentaNYL CITRATE 100 MCG/2 ML VL ONE (06:44)
[2022-11-22] MEDS ORDERED: CELECOXIB 100 MG CAP PO ONE (07:00)
[2022-11-22] MEDS ORDERED: ACETAMINOPHEN 500 MG TAB PO ONE (07:00)
[2022-11-22] MEDS ORDERED: GABAPENTIN 400 MG CAP PO ONE (07:00)
[2022-11-22] MEDS ORDERED: SODIUM CHLORIDE LOCK 10 ML ONE (08:13)
[2022-11-22] MEDS ORDERED: PHENYLEPHRINE HCL 10 MG/ML VL ONE (08:13)
[2022-11-22] MEDS: LACTATED RINGER'S 1,000 ML IV SCH ×3 (08:30→21:50)
[2022-11-22] MEDS ORDERED: ONDANSETRON HCL 4 MG/2 ML VIAL IV PRN ×2 (08:30→09:15)
[2022-11-22] MEDS ORDERED: MORPHINE SULFATE INJ 2 MG/ml SYRG IV PRN (08:30)
[2022-11-22] MEDS ORDERED: ACETAMINOPHEN IV 100 ML IV ONE (09:06)
[2022-11-22] MEDS ORDERED: fentaNYL CITRATE 100 MCG/2 ML VL IV PRN (09:15)
[2022-11-22] MEDS ORDERED: ePHEDrine SULFATE 50 MG/ML AMP IV PRN (09:15)
[2022-11-22] MEDS ORDERED: HYDROmorphone HCL 2 MG/ML VL/or syr IV PRN (09:15)
[2022-11-22] MEDS ORDERED: hydrALAZINE HCL 20 MG/ML VL IV PRN (09:15)
[2022-11-22] MEDS ORDERED: LABETALOL HCL 5 MG/ML 4ML SYRINGE IV PRN (09:15)
[2022-11-22] MEDS ORDERED: FLUMAZENIL 0.1 MG/ML INJ 10ML MDV IV PRN (09:15)
[2022-11-22] MEDS ORDERED: NALOXONE HCL 0.4 MG/ML VIAL IV PRN (09:15)
[2022-11-22] MEDS: MORPHINE SULFATE INJ 2 MG/ml SYRG IV PRN ×2 (09:30→12:00)
[2022-11-22] MEDS: oxyCODONE HCL 5MG TAB PO PRN ×2 (10:28→20:35)
[2022-11-22] MEDS ORDERED: HYDR-4902 PO (11:05)
[2022-11-22] MEDS ORDERED: ONDA-144 PO (11:05)
[2022-11-22] MEDS ORDERED: IBUP800T27 PO (11:05)
[2022-11-22] MEDS ORDERED: DOCU-94 PO (11:05)
[2022-11-22 13:00] VITALS: BP 111/71
[2022-11-22] MEDS ORDERED: MORPHINE SULFATE 4 MG/ML SYR/VIAL IV PRN (13:30)
[2022-11-22 17:02] VITALS: BP 115/56
[2022-11-22] MEDS ORDERED: PHEN32.44 PO (20:56)
[2022-11-22] MEDS ORDERED: HYDROmorphone HCL 2 MG/ML VL/or syr IV ONE (21:00)
[2022-11-22 22:00] VITALS: BP 92/51
[2022-11-22] MEDS: PHENobarbital 20 MG/5 ML UD PO SCH (22:49)
[2022-11-22 23:39] LABS: Basophils # (auto) 0 10 ^3/uL (0-0.2); Basophils % (auto) 0.1 % (0.0-2.0); Eosinophils # (auto) 0 10 ^3/uL (0-0.8); Hematocrit 36.8 % (36.0-46.0); Hemoglobin 12.4 g/dL (12.2-16.2); Lymphocytes # (auto) 0.9 10 ^3/uL (0.4-5.4); Lymphocytes % (auto) 6.3 % (10.0-50.0); Mean Corpuscular Hemoglobin 33.7 pg (28.0-32.0); Mean Corpuscular Hgb Conc. 33.7 g/dL (32.0-36.0); Mean Corpuscular Volume 99.8 fL (80.0-100.0); Monocytes # (auto) 0.3 10 ^3/uL (0-1.3); Monocytes % (auto) 1.9 % (0.0-12.0); Neutrophils % (auto) 91.7 % (37.0-80.0); Red Blood Cells 3.69 10^6/uL (4.0-5.20); Red Cell Distribution Width 13.2 % (11.8-14.3); White Blood Cell 14.2 10^3/uL (4.4-10.8)
[2022-11-23 05:00] VITALS: BP 103/47
[2022-11-23 06:16] LABS: Basophils # (auto) 0 10 ^3/uL (0-0.2); Basophils % (auto) 0.1 % (0.0-2.0); Eosinophils # (auto) 0 10 ^3/uL (0-0.8); Hematocrit 34.9 % (36.0-46.0); Hemoglobin 11.7 g/dL (12.2-16.2); Lymphocytes # (auto) 1.2 10 ^3/uL (0.4-5.4); Lymphocytes % (auto) 7.8 % (10.0-50.0); Mean Corpuscular Hemoglobin 33.5 pg (28.0-32.0); Mean Corpuscular Hgb Conc. 33.7 g/dL (32.0-36.0); Mean Corpuscular Volume 99.5 fL (80.0-100.0); Monocytes # (auto) 0.8 10 ^3/uL (0-1.3); Monocytes % (auto) 5.1 % (0.0-12.0); Neutrophils # (auto) 13.1 10 ^3/uL (1.6-8.6); Red Blood Cells 3.51 10^6/uL (4.0-5.20); Red Cell Distribution Width 13.3 % (11.8-14.3)
[2022-11-23] MEDS ORDERED: HYDROmorphone HCL 2 MG/ML VL/or syr IV PRN (06:45)
[2022-11-23] MEDS: LACTATED RINGER'S 1,000 ML IV SCH ×3 (07:10→22:36)
[2022-11-23] MEDS: PHENobarbital 20 MG/5 ML UD PO SCH ×3 (07:11→22:00)
[2022-11-23] MEDS ORDERED: DOCUSATE SOD 100 MG CAP PO PRN (07:30)
[2022-11-23] MEDS ORDERED: BISACODYL 10 MG RECT SUPP PR PRN (07:30)
[2022-11-23 09:00] VITALS: BP 94/49
[2022-11-23] MEDS: HYDROcodone-ACET 10/325MG TAB PO PRN ×2 (10:41→17:50)
[2022-11-23] MEDS: SIMETHICONE 80 MG CHEWABLE TABLET PO SCH ×3 (12:19→22:37)
[2022-11-23 13:00] VITALS: BP 92/49
[2022-11-23 17:00] VITALS: BP 101/32
[2022-11-23 20:00] VITALS: BP 103/52
[2022-11-23 22:00] VITALS: BP 103/52
[2022-11-24] MEDS: HYDROcodone-ACET 10/325MG TAB PO PRN ×3 (04:21→13:54)
[2022-11-24 05:00] VITALS: BP 110/50
[2022-11-24] MEDS: SIMETHICONE 80 MG CHEWABLE TABLET PO SCH ×2 (06:00→13:54)
[2022-11-24] MEDS: PHENobarbital 20 MG/5 ML UD PO SCH ×2 (06:00→13:55)
[2022-11-24] MEDS: LACTATED RINGER'S 1,000 ML IV SCH (08:45)
[2022-11-24 09:00] VITALS: BP 110/60
[2022-11-24] MEDS ORDERED: BISACODYL 10 MG RECT SUPP PR ONE (10:00)
[2022-11-24 13:00] VITALS: BP 119/61
[2022-11-24 13:25] VITALS: BP 119/61
== END 2022-11-24 14:30 | disposition home or self-care (01) | DRG 743 ==
LOC: SUR 06:12 → OVERFLOW 08:59 → WEST WING 10:28
PROVIDERS: ADMIT Obstetrics & Gynecology; ATTEND Obstetrics & Gynecology
PROC: 0UT90ZL Resection of Uterus, Supracervical, Open Approach (ICD-10-PCS; principal; 2022-11-22 07:24)
DX: D25.9 Leiomyoma of uterus, unspecified (principal); N94.6 Dysmenorrhea, unspecified
CPT/HCPCS: 36415; 80053; 81001; 81025; 84702; 85025; 85610; 85730; 86850; 86900; 86901; G0378; J0131; J0690; J1100; J1885; J2001; J2405; J2704

== ENCOUNTER 2024-07-01 08:11 | Inpatient (IN) | payer SELFPAY ==
[~2024-07-01] VITALS: Ht 157.5 cm; Wt 109.0 kg
[~2024-07-01 08:11] MED LIST changes: +DOCU-94 PO; +HYDR-4902 PO; +IBUP-1456 PO; +ONDA-144 PO
--- NOTE | 2024-07-01 08:20 | ECG ---
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
--- NOTE | 2024-07-01 08:46 | DVH ---
CHEST RADIOGRAPH Indication: CP Technique: Single frontal view of the chest was obtained COMPARISON: XY CHEST PORTABLE on DOS: 07/15/23, CHEST PORTABLE on DOS: 06/04/22, CXRP on DOS: 06/04/22, CHEST PORTABLE on DOS: 05/31/22, CXRP on DOS: 05/31/22 FINDINGS: Lines and Tubes: None Lungs: Clear Pleura: No effusion. No pneumothorax. Cardiomediastinal contours: Unremarkable Bones: Unremarkable IMPRESSION: No acute disease.
[2024-07-01 08:51] LABS: Basophils # (auto) 0.1 10 ^3/uL (0-0.2); Basophils % (auto) 1.1 % (0.0-2.0); Eosinophils # (auto) 0 10 ^3/uL (0-0.8); Eosinophils % (auto) 0.7 % (0.0-7.0); Hematocrit 42.1 % (36.0-46.0); Hemoglobin 14.1 g/dL (12.2-16.2); Lymphocytes # (auto) 2.4 10 ^3/uL (0.4-5.4); Lymphocytes % (auto) 41.6 % (10.0-50.0); Mean Corpuscular Hemoglobin 33.3 pg (28.0-32.0); Mean Corpuscular Hgb Conc. 33.6 g/dL (32.0-36.0); Mean Corpuscular Volume 99.3 fL (80.0-100.0); Monocytes # (auto) 0.4 10 ^3/uL (0-1.3); Monocytes % (auto) 6.6 % (0.0-12.0); Neutrophils # (auto) 2.8 10 ^3/uL (1.6-8.6); Nucleated Red Blood Cells % 0.1 %; Platelet Count (auto) 363 10^3/uL (140-450); Red Blood Cells 4.24 10^6/uL (4.0-5.20); Red Cell Distribution Width 12.9 % (11.8-14.3); White Blood Cell 5.7 10^3/uL (4.4-10.8)
[2024-07-01 08:55] LABS: Potassium 3.8 mmol/L (3.5-5.1); Sodium 138 mmol/L (136-145)
[2024-07-01 08:56] LABS: Anion Gap 7 (5-15); Carbon Dioxide 24 mmol/L (20-31)
[2024-07-01 09:02] LABS: BUN/Creatinine Ratio 17.1 (10.0-20.0); Blood Urea Nitrogen 13 mg/dL (9-23); Glucose 102 mg/dL (74-106)
[2024-07-01 09:04] LABS: Chloride 107 mmol/L (98-107)
--- NOTE | 2024-07-01 09:13 | ECG ---
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
--- NOTE | 2024-07-01 09:17 | ED.PDOC ---
HPI Comments 49Y F with PMHx epilepsy and gallstones presents to ED for chief complaint chest pain x3days. Pt states chest pain worsens with exertion and is located on the left side. Per pt, SOB began this morning as well. Chief Complaint: Chest Pain Time Seen by MD: 09:00 Primary Care Provider: VITALY Reviewed Notes: Medications, Allergies Allergies: Coded Allergies: Ciprofloxacin (Unverified Allergy, Intermediate, Hives,fever,N/V, 11/21/22) Phenytoin (Verified Allergy, Intermediate, 11/22/22) Carbamazepine (Unverified Allergy, Unknown, 04/04/18) Phenobarbital (Verified Allergy, Unknown, 07/01/24) Home Meds Active Scripts Ondansetron (Zofran) 4 Mg Tab, 4 MG PO Q4HPRN PRN, #30 TAB Prov:SILVER BARAJAS DO 11/22/22 Ibuprofen (Ibuprofen) 800 Mg Tab, 800 MG PO TID PRN for 15 Days, #40 TAB Prov:SILVER BARAJAS DO 11/22/22 Hydrocodone-Acetaminophen (Hydrocodone Bitartrate/AC 5-325 mg) 1 Tab Tab, 1 TAB PO Q6HPRN PRN for 5 Days, #20 TAB Prov:SILVER BARAJAS DO 11/22/22 Docusate Sodium (Colace) 100 Mg Cap, 1 CAP PO BID, #60 CAP 2 Refills Prov:SILVER BARAJAS DO 11/22/22 Hydrocodone-Acetaminophen (Hydrocodone Bitartrate/AC 10-325 mg) 1 Tab Tab, 1 TAB PO Q8HP PRN, #15 TAB Prov:DUTCH GIBSON PAC 10/15/22 Reported Medications Phenobarbital (PHENOBARBITAL) 32.4 Mg Tb, 30 MG PO TID, TAB 11/22/22 Phenobarbital (PHENOBARBITAL) 32.4 Mg Tb, 30 MG PO TID 04/05/18 Information Source: Patient Mode of Arrival: Ambulatory Severity: Mild Timing: Days Duration: Since onset Location: Chest (L) Radiation: No Radiation Quality: Other Onset: At Rest Cardiac Risk Factors: None PE Risk Factors: None History of: None Modifying Factors: Nothing Associated Signs and Symptoms: SOB Past Medical History PAST MEDICAL HISTORY: Gallstones, Kidney Stones, Seizures Surgical History: Denies all surgeries PHYSICAL PLANT MANAGER History: No Pertinent PHYSICAL PLANT MANAGER History Family History Family History: No family hx of Cancer, No family hx of DM, No family hx of Heart rex Social History Smoker: Non-Smoker Alcohol: Occasionally Drugs: Denies Drug Use Lives In: Home Constitutional: denies: chills, diaphoresis, fatigue, fever, malaise, sweats, weakness, others EENTM: denies: blurred vision, double vision, ear bleeding, ear discharge, ear drainage, ear pain, ear ringing, eye pain, eye redness, hearing loss, mouth pain, mouth swelling, nasal discharge, nose bleeding, nose congestion, nose pain, photophobia, tearing, throat pain, throat swelling, voice changes, others Respiratory: reports: shortness of breath; denies: cough, hemoptysis, orthopnea, SOB at rest, SOB with excertion, stridor, wheezing, others Cardiovascular: reports: chest pain; denies: dizzy spells, diaphoresis, Dyspnea on exertion, edema, irregular heart beat, left arm pain, lightheadedness, palpitations, PND, syncope, others Gastrointestinal: denies: abdomen distended, abdominal pain, blood streaked bowels, constipated, diarrhea, dysphagia, difficulty swallowing, hematemesis, melena, nausea, poor appetite, poor fluid intake, rectal bleeding, rectal pain, vomiting, others Genitourinary: denies: abnormal vagina bleeding, burning, dyspareunia, dysuria, flank pain, frequency, hematuria, incontinence, pain, , vagina discharge, urgency, others Neurological: denies: dizziness, fainting, headache, left sided numbness, left sided weakness, numbness, paresthesia, pre-existing deficit, right sided numbness, right sided weakness, seizure, speech problems, tingling, tremors, weakness, others Musculoskeletal: denies: back pain, gout, joint pain, joint swelling, muscle pain, muscle stiffness, neck pain, others Integumetry: denies: bruises, change in color, change in hair/nails, dryness, laceration, lesions, lumps, rash, wounds, others Allergic/Immunocompromised: denies: Difficulty Healing, Frequent Infections, Hives, Itching, others Hematologic/Lymphatic: denies: anemia, blood clots, easy bleeding, easy bruising, swollen glands, others Endocrine: denies: excessive hunger, excessive sweating, excessive thirst, excessive urination, flushing, intolerance to cold, intolerance to heat, unexplained weight gain, unexplained weight loss, others Psychiatric: denies: anxiety, bipolar disorder, depression, hopeless, panic disorder, schizophrenia, sleepless, suicidal, others All Other Systems: Reviewed and Negative Physical Exam General Appearance: Moderate Distress, Normal HEENT: Normal ENT Inspection, Pharynx Normal, TMs Normal Neck: Full Range of Motion, Non-Tender, Normal, Normal Inspection Respiratory: Chest Non-Tender, Lungs Clear, No Accessory Muscle Use, No Respiratory Distress, Normal Breath Sounds Cardiovascular: No Edema, No JVD, No Murmur, No Gallop, Normal Peripheral Pulses, Regular Rate/Rhythm Breast Exam: Deferred Gastrointestinal: No Organomegaly, Non Tender, No Pulsatile Mass, Normal Bowel Sounds, Soft Genitalia: Deferred Pelvic: Deferred Rectal: Deferred Extremities: No calf tenderness, Normal capillary refill, Normal inspection, Normal range of motion, Non-tender, No pedal edema Musculoskeletal : Apperance: Normal Neurologic: Alert, bending roll operator II-XII nml as Tested, No Motor Deficits, Normal Affect, Normal Mood, No Sensory Deficits Cerebellar Function: Normal Reflexes: Normal Skin: Dry, Normal Color, Warm Peripheral Pulses: 3+ Radial (R), 3+ Radial (L) Lymphatic: No Adenopathy Was a procedure done? Was a procedure done?: No CP Differential Dx Differential Diagnosis: A-fib, A-Flutter, Angina, Anxiety / Panic Attack, Atrial Dysrhythmia, Electrolyte Disorder, Heart Failure X-Ray, Labs, Meds, VS Vital Signs Date Time Temp Pulse Resp B/P (MAP) Pulse Ox O2 Delivery O2 Flow Rate FiO2 07/01/24 10:20 77 22 118/79 07/01/24 10:17 99.1 77 18 118/79 (92) 97 99.1 07/01/24 09:12 75 07/01/24 08:15 92 07/01/24 08:12 98.3 9 20 124/83 (97) 96 Lab Test 07/01/24 09:18 07/01/24 09:00 07/01/24 08:32 Range/Units Troponin I High Sensitivity < 3 L < 3 L </=34 ng/L Urine Color Pending Urine Clarity Pending Urine pH Pending Urine Specific [place] Pending Urine Protein Pending Urine Ketones Pending Urine Blood Pending Urine Nitrite Pending Urine Bilirubin Pending Urine Urobilinogen Pending Urine Leukocyte Esterase Pending Urine RBC Pending Urine WBC Pending Urine Squamous Epithelial Cells Pending Urine Bacteria Pending Urine Glucose Pending White Blood Count 5.7 4.4-10.8 10^3/uL Red Blood Count 4.24 4.0-5.20 10^6/uL Hemoglobin 14.1 12.2-16.2 g/dL Hematocrit 42.1 36.0-46.0 % Mean Corpuscular Volume 99.3 80.0-100.0 fL Mean Corpuscular Hemoglobin 33.3 H 28.0-32.0 pg Mean Corpuscular Hemoglobin Concent 33.6 32.0-36.0 g/dL Red Cell Distribution Width 12.9 11.8-14.3 % Platelet Count 363 140-450 10^3/uL Mean Platelet Volume 8.3 6.9-10.8 fL Neutrophils (%) (Auto) 50.0 37.0-80.0 % Lymphocytes (%) (Auto) 41.6 10.0-50.0 % Monocytes (%) (Auto) 6.6 0.0-12.0 % Eosinophils (%) (Auto) 0.7 0.0-7.0 % Basophils (%) (Auto) 1.1 0.0-2.0 % Neutrophils # (Auto) 2.8 1.6-8.6 10 ^3/uL Lymphocytes # (Auto) 2.4 0.4-5.4 10 ^3/uL Monocytes # (Auto) 0.4 0-1.3 10 ^3/uL Eosinophils # (Auto) 0 0-0.8 10 ^3/uL Basophils # (Auto) 0.1 0-0.2 10 ^3/uL Nucleated Red Blood Cells 0.1 % Sodium Level 138 136-145 mmol/L Potassium Level 3.8 3.5-5.1 mmol/L Chloride Level 107 98-107 mmol/L Carbon Dioxide Level 24 20-31 mmol/L Anion Gap 7 5-15 Blood Urea Nitrogen 13 9-23 mg/dL Creatinine 0.76 0.550-1.02 mg/dL Glomerular Filtration Rate Calc 95 >90 mL/min BUN/Creatinine Ratio 17.1 10.0-20.0 Serum Glucose 102 74-106 mg/dL Calcium Level 10.0 8.7-10.4 mg/dL Current Medications Medications (Trade) Dose Ordered Sig/Zeb Route Start Time Stop Time Status Last Admin Aspirin 325 mg ONCE ONCE PO 07/01/24 09:15 07/01/24 09:16 DC 07/01/24 09:19 Morphine Sulfate 4 mg ONCE ONCE IV 07/01/24 09:45 07/01/24 09:46 DC 07/01/24 10:20 Ondansetron HCl (Zofran) 4 mg ONCE ONCE IV 07/01/24 09:45 07/01/24 09:46 DC 07/01/24 10:18 [place] [id number] Ph: [phone] DIAGNOSTIC IMAGING Diagnostic Imaging Report : [id number] Signed PATIENT: ABY BERRIOS ACCT: [id number] UNIT: [id number] : 1975 LOC: ER ROOM / BED: / AGE / SEX: 49 / F ADM STATUS: REG ER SERVICE 7 ORDERING PHYSICIAN: PAMELA RIZO MD PROCEDURE(s): CXRP - CHEST PORTABLE REASON: CP ORDER NUMBER(s): [id number], ACCESSION NUMBER(s): [id number] CHEST RADIOGRAPH Indication: CP Technique: Single frontal view of the chest was obtained COMPARISON: XY CHEST PORTABLE on DOS: 07/15/23, CHEST PORTABLE on DOS: 06/04/22, CXRP on DOS: 06/04/22, CHEST PORTABLE on DOS: 05/31/22, CXRP on DOS: 05/31/22 FINDINGS: Lines and Tubes: None Lungs: Clear Pleura: No effusion. No pneumothorax. Cardiomediastinal contours: Unremarkable Bones: Unremarkable IMPRESSION: No acute disease. ATED BY: CAR DUENAS MD DICTATED DATE/TIME: 07/01/24843 SIGNED BY: CAR DUENAS MD SIGNED DATE/TIME: 07/01/24843 CC: Patient alert. Complaining of chest pain. Vitals stable. Answering all questions. EKG reviewed does show old changes. Continues to have chest pain. Was given aspirin. WBC within normal limits. Was given morphine. Was given Zofran. Reviewed her history. Explained to the patient. Continue cardiac monitoring. Chest x-ray reviewed does not show any acute changes. Time of 1ST Reevaluation: 09:30 Reevaluation 1ST: Unchanged Patient Education/Counseling: Diagnosis, Treatment Family Education/Counseling: No Family Present Additional Information I reviewed the following notes from patient's past medical encounters: [facility] discharge 11/24/2022, 04/06/2018 The following tests were ordered, and results were reviewed by me: CBC, BMP, Troponin x3, UA, CXR, EKG x3 Additional Information was gathered from interviewing the following independent historians: None. I reviewed and agreed with the following test results read by other providers: CXR I discussed treatment and results with medical personnel. Departure 1 Departure Time of Disposition: 10:30 Impression: Primary Impression: Chest pain of unknown etiology Disposition: ADMITTED INPATIENT Admit to: Med Surg Condition: Guarded Critical Care Note Critical Care Time?: Yes (45 min-critical care time only) Stability Stability form required: No Heart Score Heart Score: Heart Score Response (Comments) Value History Slightly Suspicious 0 EKG Normal 0 Age 45-64 1 Risk Factors 1 or 2 risk factors 1 Troponin Normal limit 0 Total 2 I personally scribed for PAMELA RIZO MD ([email or web address]) on 07/01/24 at 09:17. Electronically submitted by Amber Winters ([employer]). I personally scribed for PAMELA RIZO MD ([email or web address]) on 07/01/24 at 09:18. Electronically submitted by Amber Winters ([employer]). PAMELA RIZO MD Jul 01, 2024 09:17
[2024-07-01] MEDS: ASPirin 325 MG TAB PO ONE (09:19)
[2024-07-01 09:30] VITALS: PULSE 79; RESP 22; O2SAT 97
[2024-07-01 10:09] LABS: Urine Bacteria None Seen /hpf (None Seen)
[2024-07-01] MEDS: ONDANSETRON HCL 4 MG/2 ML VIAL IV ONE (10:18)
[2024-07-01] MEDS: MORPHINE SULFATE 4 MG/ML SYR/VIAL IV ONE (10:20)
[2024-07-01 10:38] LABS: Urine Blood TRACE /uL (Negative); Urine Clarity Turbid (Clear); Urine Color Yellow (Yellow); Urine Hyaline Cast FEW /lpf (0 - 2); Urine Mucus FEW (None Seen); Urine Protein, UAD TRACE (Negative); Urine Specific Gravity 1.026 (1.001-1.035); Urine Urobilinogen 3 mg/dL (Negative); Urine WBC 9 /hpf (0 - 5); Urine pH 6.5 (5.0-9.0)
--- NOTE | 2024-07-01 11:52 | DVHHP2 ---
History of Present Illness Reason for Visit: Chest pain History of Present Illness 49-year-old female past medical history gallstones epilepsy kidney stones denies surgical history chief complaint patient was in the ED waiting for admission and she had a seizure that was witnessed prior to my assessment and admission. When evaluating patient she was laying in bed more alert and appropriate she states she did not take her phenobarb this morning as scheduled. Patient did complain of chest pain midsternal has been going on for three days today her pain got so worse that she had to come to the ER for evaluation patient states it feels like a sticky pain in his pulling pain nothing makes it better nothing makes it worse she has no history GA. When evaluating patient's labs and EKG Zofran was given morphine aspirin CBC was unremarkable troponin was negative chest x-ray was negative BNP was negative did review echo from 2020 EF was 50% we will repeat echo. With these findings we will admit patient we will also administer her phenobarb. Past Medical History See HPI above Past Surgical History See HPI above Family History Reviewed, non-contributory to the management of this case. Past Social History The patient lives at home, denies smoking, alcohol or illicit drugs abuse. Review of Systems Constitutional: No: Fever, Chills, Sweats, Weakness, Malaise, Other Eyes: No: Pain, Vision change, Conjunctivae inflammation, Eyelid inflammation, Other, Redness ENT: No: Ear pain, Ear discharge, Nose pain, Nose discharge, Nose congestion, Mouth pain, Mouth swelling, Throat pain, Throat swelling, Other Respiratory: No: Cough, Dry, Shortness of breath, SOB with excertion, Wheezing, Hemoptysis, Pleuritic Pain, Sputum, Wheezing, Other Cardiovascular: Chest Pain; No: Palpitations, Orthopnea, Paroxysmal Noc. Dyspnea, Edema, Lt Headedness, Other Gastrointestinal: No: Nausea, Vomiting, Abdominal Pain, Diarrhea, Constipation, Melena, Hematochezia, Other Genitourinary: No Dysuria, No Frequency, No Incontinence, No Hematuria, No Retention, No Other Musculoskeletal: No: other, neck pain, shoulder pain, arm pain, back pain, hand pain, leg pain, foot pain Skin: No: Rash, Lesions, Jaundice, Bruising, Other Neurological: Seizures; No: Weakness, Numbness, Incoordination, Change in speech, Confusion, Other Allergies: Coded Allergies: Ciprofloxacin (Unverified Allergy, Intermediate, Hives,fever,N/V, 11/21/22) Phenytoin (Verified Allergy, Intermediate, 11/22/22) Carbamazepine (Unverified Allergy, Unknown, 04/04/18) Phenobarbital (Verified Allergy, Unknown, 07/01/24) Exam Vital Signs Vital Signs Date Time Temp Pulse Resp B/P (MAP) Pulse Ox O2 Delivery O2 Flow Rate FiO2 07/01/24 10:20 77 22 118/79 07/01/24 10:17 99.1 97 99.1 07/01/24 09:30 Room Air* 0 21 General Appearance: Alert, Oriented X3, Cooperative, No acute distress HEENT: Atraumatic, PERRLA, EOMI, Mucous membr. moist/pink Respiratory: Clear to auscultation, Normal air movement Cardiovascular: Regular rate, Normal S1, Normal S2, No murmurs Abdominal: Normal bowel sounds, Soft, No tenderness, No hepatospenomegaly, No masses Extremities: No clubbing, No cyanosis, No edema, Normal pulses, No tenderness/swelling Skin: No rashes, No breakdown, No significant lesion Neuro: Normal speech, Strength at 5/5 X4 ext, Normal tone, Sensation intact Psych/Mental Status: Mental status NL, Mood NL Labs/Xrays I reviewed labs, imaging CT scan abdomen pelvis, EKG and all diagnostic studies on this patient from ED records and the medical chart Labs Test 07/01/24 09:18 07/01/24 09:00 07/01/24 08:32 Range/Units Troponin I High Sensitivity < 3 L </=34 ng/L Urine Color Yellow Yellow Urine Clarity Turbid H Clear Urine pH 6.5 5.0-9.0 Urine Specific [place] 1.026 1.001-1.035 Urine Protein Trace H Negative Urine Ketones Negative Negative Urine Blood Trace H Negative /uL Urine Nitrite Negative Negative Urine Bilirubin Negative Negative Urine Urobilinogen 3 H Negative mg/dL Urine Leukocyte Esterase Trace Negative /uL Urine RBC 6 0 - 4 /hpf Urine WBC 9 0 - 5 /hpf Urine Squamous Epithelial Cells Few <5 /hpf Urine Bacteria None seen None Seen /hpf Urine Hyaline Casts Few 0 - 2 /lpf Urine Mucus Few None Seen Urine Glucose Normal Normal mg/dL White Blood Count 5.7 4.4-10.8 10^3/uL Red Blood Count 4.24 4.0-5.20 10^6/uL Hemoglobin 14.1 12.2-16.2 g/dL Hematocrit 42.1 36.0-46.0 % Mean Corpuscular Volume 99.3 80.0-100.0 fL Mean Corpuscular Hemoglobin 33.3 H 28.0-32.0 pg Mean Corpuscular Hemoglobin Concent 33.6 32.0-36.0 g/dL Red Cell Distribution Width 12.9 11.8-14.3 % Platelet Count 363 140-450 10^3/uL Mean Platelet Volume 8.3 6.9-10.8 fL Neutrophils (%) (Auto) 50.0 37.0-80.0 % Lymphocytes (%) (Auto) 41.6 10.0-50.0 % Monocytes (%) (Auto) 6.6 0.0-12.0 % Eosinophils (%) (Auto) 0.7 0.0-7.0 % Basophils (%) (Auto) 1.1 0.0-2.0 % Neutrophils # (Auto) 2.8 1.6-8.6 10 ^3/uL Lymphocytes # (Auto) 2.4 0.4-5.4 10 ^3/uL Monocytes # (Auto) 0.4 0-1.3 10 ^3/uL Eosinophils # (Auto) 0 0-0.8 10 ^3/uL Basophils # (Auto) 0.1 0-0.2 10 ^3/uL Nucleated Red Blood Cells 0.1 % Sodium Level 138 136-145 mmol/L Potassium Level 3.8 3.5-5.1 mmol/L Chloride Level 107 98-107 mmol/L Carbon Dioxide Level 24 20-31 mmol/L Anion Gap 7 5-15 Blood Urea Nitrogen 13 9-23 mg/dL Creatinine 0.76 0.550-1.02 mg/dL Glomerular Filtration Rate Calc 95 >90 mL/min BUN/Creatinine Ratio 17.1 10.0-20.0 Serum Glucose 102 74-106 mg/dL Calcium Level 10.0 8.7-10.4 mg/dL Assessment/Plan Assessment/Plan acute chest pain r/o nstemi trop x3 negative ekg no stemi ordered Cards consult pending eval and recs ordered asa atorvastatin ordered Echocardiogram follow-up results ordered morphine as needed for pain, ordered nitro prn acute breakthrough seizure d/t missed dose pt take phenobarb tid pt did not take am dose pt more alert on exam ordered ativan prn seizure precautions chronic seizure cont home medication fen/ppx diet hl scd lovenox for now no gi ppx since hx of gerds or gi bleed plan admit to tele cards consult fu recs Plan discussed with: Patient Date of Service: Jul 01, 2024 Billing Provider: KIMMIE BOONE DNP Common Visit Codes: [id number] INP/OBS CARE (HIGH) KIMMIE BOONE DNP Jul 01, 2024 11:52
[2024-07-01] MEDS: LORazepam 2MG/ML-1ML VIAL IV ONE (12:27)
[2024-07-01] MEDS ORDERED: LORazepam 2MG/ML-1ML VIAL IV PRN ×2 (14:15)
[2024-07-01] MEDS ORDERED: ACETAMINOPHEN 325 MG TAB PO PRN (14:15)
[2024-07-01] MEDS ORDERED: NITROGLYCERIN 0.4 MG SL TAB SL PRN ×2 (14:15)
[2024-07-01] MEDS ORDERED: HYDROcodone-ACET 5/325MG TAB PO PRN (14:15)
[2024-07-01] MEDS: SODIUM CHLORIDE 0.9% 1,000 ML IV SCH (14:49)
[2024-07-01] MEDS ORDERED: PHENobarbital 32.4 MG TAB PO SCH (15:00)
[2024-07-01] MEDS: PHENobarbital 32.4 MG TAB PO SCH (15:24)
[2024-07-01] MEDS: HYDROcodone-ACET 10/325MG TAB PO PRN (15:30)
--- NOTE | 2024-07-01 15:38 | DVHINCON2 ---
Date Seen: Jul 01, 2024 Referring Physician ZAYDA Ellison Reason for Consultation Chest pain History of Present Illness This is a 49-year-old female who presented to emergency room with a chief complaint of chest pain for three days. Describes his chest pain as substernal and radiating to her bilateral chest wall area, sharp in nature, and worse with movement and inspiration. Per patient, she developed this can of pain in the past when she was diagnosed with gallstones. She underwent multiple 12 lead electrocardiogram revealing a sinus rhythm suggestive of LVH. Serial troponin levels are negative. Reports a significant medical history of seizure activity, cholelithiasis, and morbid obesity. Past Medical History Past medical history reviewed. No other significant than mentioned above. Past Surgical History Hysterectomy Family History: Patient reports no known family medical history. Family History Family history reviewed. Not significant for cardiovascular disease. Social History Denies the use of illicit drugs, alcohol, or tobacco use. Allergies: Coded Allergies: Ciprofloxacin (Unverified Allergy, Intermediate, Hives,fever,N/V, 11/21/22) Phenytoin (Verified Allergy, Intermediate, 11/22/22) Carbamazepine (Unverified Allergy, Unknown, 04/04/18) Phenobarbital (Verified Allergy, Unknown, 07/01/24) Home Meds Active Scripts Ondansetron (Zofran) 4 Mg Tab, 4 MG PO Q4HPRN PRN, #30 TAB Prov:SILVER BARAJAS DO 11/22/22 Ibuprofen (Ibuprofen) 800 Mg Tab, 800 MG PO TID PRN for 15 Days, #40 TAB Prov:SILVER BARAJAS DO 11/22/22 Hydrocodone-Acetaminophen (Hydrocodone Bitartrate/AC 5-325 mg) 1 Tab Tab, 1 TAB PO Q6HPRN PRN for 5 Days, #20 TAB Prov:SILVER BARAJAS DO 11/22/22 Docusate Sodium (Colace) 100 Mg Cap, 1 CAP PO BID, #60 CAP 2 Refills Prov:SILVER BARAJAS DO 11/22/22 Hydrocodone-Acetaminophen (Hydrocodone Bitartrate/AC 10-325 mg) 1 Tab Tab, 1 TAB PO Q8HP PRN, #15 TAB Prov:DUTCH GIBSON PAC 10/15/22 Reported Medications Phenobarbital (PHENOBARBITAL) 32.4 Mg Tb, 30 MG PO TID, TAB 11/22/22 Phenobarbital (PHENOBARBITAL) 32.4 Mg Tb, 30 MG PO TID 04/05/18 Home Meds Home medications reviewed. Current Medications Current Medications Medications (Trade) Dose Ordered Sig/Zeb Route PRN Reason Start Time Stop Time Status Last Admin Docusate Sodium (Colace Capsule) 100 mg BID PO 07/01/24 22:00 Acetaminophen/ Hydrocodone Bitart ([place] 10/325MG Tab) 1 tab Q8HP PRN PO PAIN SCALE 7 THRU 10 07/01/24 14:15 Acetaminophen/ Hydrocodone Bitart ([place] 5/325MG Tab) 1 tab Q6HPRN PRN PO PAIN SCALE 1 THRU 6 07/01/24 14:15 Phenobarbital 30 mg TID PO 07/01/24 15:00 07/01/24 15:01 DC Lorazepam (Ativan Inj) 1 mg Q5MINP PRN IV SEIZURES 07/01/24 14:15 Lorazepam (Ativan Inj) 1 mg Q6HP PRN IV ANXIETY 07/01/24 14:15 Sodium Chloride 1,000 ml @ 100 mls/hr Q10H IV 07/01/24 14:15 07/01/24 14:49 Aspirin 81 mg DAILY PO 07/02/24 10:00 Atorvastatin Calcium (Lipitor) 40 mg HS PO 07/01/24 22:00 Acetaminophen (Tylenol Tablet) 325 mg Q4HP PRN PO FOR HEADACHE 07/01/24 14:15 Docusate Sodium (Colace Capsule) 100 mg DAILY PO 07/02/24 10:00 Nitroglycerin (Ntrostat Sublingual) 0.4 mg Q5MINP PRN SL FOR CHEST PAIN 07/01/24 14:15 Nitroglycerin (Ntrostat Sublingual) 0.4 mg Q5MINP PRN SL FOR CHEST PAIN 07/01/24 14:15 Phenobarbital 32.4 mg TID PO 07/01/24 15:01 07/01/24 15:24 Review of Systems Constitutional: No symptom reported Ears, Nose, & Throat: No symptom reported Eyes: No symptom reported Neurological: No symptoms reported Pulmonary/Respiratory: No symptom reported Cardiovascular: Chest pain Gastrointestinal: No symptom reported Genitourinary: No symptom reported Musculoskeletal: No symptom reported Skin: No symptom reported Psychiatric: No symptom reported Endocrine: No symptom reported Hemotologic/Lymphatic: No symptom reported Vital Signs Vital Signs Date Time Temp Pulse Resp B/P (MAP) Pulse Ox O2 Delivery O2 Flow Rate FiO2 07/01/24 14:00 78 21 94 07/01/24 13:00 114/73 (87) 07/01/24 10:17 99.1 99.1 07/01/24 09:30 Room Air* 0 21 Physical Exam General Appearance: Cooperative. Well developed. Morbidly obese. In no acute distress Head Exam: Normal inspection Neck Exam: Normal inspection. Non-tender. Normal alignment Pulmonary/Respiratory: Chest non-tender. Clear bilateral breath sounds Cardiovascular/Chest: Regular rate and rhythm. S1, S2. NSR. No murmurs. No JVD. Peripheral Pulses: 2+ Radial (R). 2+ Radial (L). 2+ Pedal (R). 2+ Pedal (L) Abdominal Exam: Normal bowel sounds. Tender Ankle Exam: Negative ankle edema Lower extremities: Negative lower extremity edema Neuro/Mental Status: A&O x4. Coherent Thoughts/Psych: Normal thought pattern. Appropriate mood and affect. Good judgement and insight Appearance: In no acute distress Skin Exam: Normal inspection. Normal color. Warm. Dry Labs/Diagnostic Data Labs Test 07/01/24 14:45 07/01/24 09:00 07/01/24 08:32 Range/Units Troponin I High Sensitivity < 3 L </=34 ng/L Phenobarbital Level < 3.0 L 15.0-40.0 ug/mL Urine Color Yellow Yellow Urine Clarity Turbid H Clear Urine pH 6.5 5.0-9.0 Urine Specific [place] 1.026 1.001-1.035 Urine Protein Trace H Negative Urine Ketones Negative Negative Urine Blood Trace H Negative /uL Urine Nitrite Negative Negative Urine Bilirubin Negative Negative Urine Urobilinogen 3 H Negative mg/dL Urine Leukocyte Esterase Trace Negative /uL Urine RBC 6 0 - 4 /hpf Urine WBC 9 0 - 5 /hpf Urine Squamous Epithelial Cells Few <5 /hpf Urine Bacteria None seen None Seen /hpf Urine Hyaline Casts Few 0 - 2 /lpf Urine Mucus Few None Seen Urine Glucose Normal Normal mg/dL White Blood Count 5.7 4.4-10.8 10^3/uL Red Blood Count 4.24 4.0-5.20 10^6/uL Hemoglobin 14.1 12.2-16.2 g/dL Hematocrit 42.1 36.0-46.0 % Mean Corpuscular Volume 99.3 80.0-100.0 fL Mean Corpuscular Hemoglobin 33.3 H 28.0-32.0 pg Mean Corpuscular Hemoglobin Concent 33.6 32.0-36.0 g/dL Red Cell Distribution Width 12.9 11.8-14.3 % Platelet Count 363 140-450 10^3/uL Mean Platelet Volume 8.3 6.9-10.8 fL Neutrophils (%) (Auto) 50.0 37.0-80.0 % Lymphocytes (%) (Auto) 41.6 10.0-50.0 % Monocytes (%) (Auto) 6.6 0.0-12.0 % Eosinophils (%) (Auto) 0.7 0.0-7.0 % Basophils (%) (Auto) 1.1 0.0-2.0 % Neutrophils # (Auto) 2.8 1.6-8.6 10 ^3/uL Lymphocytes # (Auto) 2.4 0.4-5.4 10 ^3/uL Monocytes # (Auto) 0.4 0-1.3 10 ^3/uL Eosinophils # (Auto) 0 0-0.8 10 ^3/uL Basophils # (Auto) 0.1 0-0.2 10 ^3/uL Nucleated Red Blood Cells 0.1 % Sodium Level 138 136-145 mmol/L Potassium Level 3.8 3.5-5.1 mmol/L Chloride Level 107 98-107 mmol/L Carbon Dioxide Level 24 20-31 mmol/L Anion Gap 7 5-15 Blood Urea Nitrogen 13 9-23 mg/dL Creatinine 0.76 0.550-1.02 mg/dL Glomerular Filtration Rate Calc 95 >90 mL/min BUN/Creatinine Ratio 17.1 10.0-20.0 Serum Glucose 102 74-106 mg/dL Calcium Level 10.0 8.7-10.4 mg/dL Assessment Noncardiac chest pain rule out acute cholecystitis Rule out structural heart disease HX of cholelithiasis Seizure activity Morbid obesity Plan/Recommendation (Dr. Mohan) The patient presents with noncardiac chest pain. We will continue further evaluation with a transthoracic echocardiogram to rule out structural heart disease. In the meantime, obtain a gallbladder ultrasound to rule out acute cholecystitis. In the setting of an unremarkable echocardiogram, there is no further cardiac workup indicated at this time. Please call if in need to re-c onsult. Thank you for allowing us to participate in this patient's care. This medical document was created using an electronic medical record system with voice recognition software and computerized dictation system. Although this document has been carefully reviewed, there might still be some phonetic and typographical errors. Occasional wrong-word or ``sound-alike substitutions may have occurred due to the inherent limitations of voice recognition software. These areas are purely typographical due to imperfections of the software programs and do not reflect any compromise in the patient's medical care. Please read the chart carefully and recognize, using context, where these substitutions have occurred. Plan discussed with: Patient, Spouse, Other Date of Service: Jul 01, 2024 Billing Provider: JUAN C MOHAN MD Cardiology Common Codes: [id number] INP/OBS CARE (High) [facility] Jul 01, 2024 15:38
--- NOTE | 2024-07-01 16:15 | DVH ---
INDICATION: Cholelithiasis TECHNIQUE: Multiple real-time sonographic images were obtained of the right upper quadrant. COMPARISON: GALLBLADDER on DOS: 04/04/18 FINDINGS: The liver demonstrates homogeneous echotexture without focal mass lesions. The liver measu res 14.5 cm. There is no intrahepatic or extrahepatic ductal dilatation. The common duct measures 0.3 cm. Cholelithiasis. The gallbladder wall measures 0.2 cm and is within normal limits. The right kidney measures 11.5 cm. The right kidney is normal in contour, size, and shape. The echo genicity is normal. There is no hydronephrosis. The pancreas is not well visualized due to overlying bowel gas. IMPRESSION: Cholelithiasis.
[2024-07-01 16:57] VITALS: BP 107/58; PULSE 72; RESP 16; TEMP 97.4; O2SAT 98
[2024-07-01 17:08] VITALS: BP 107/58; PULSE 73; RESP 16; TEMP 97.4; O2SAT 96
[2024-07-01 20:00] VITALS: PULSE 68; RESP 18
[2024-07-01 21:00] VITALS: BP 115/50; PULSE 69; RESP 20; TEMP 98.9; O2SAT 96
[2024-07-01] MEDS ORDERED: ATORVASTATIN 20 MG TAB PO SCH (22:00)
[2024-07-01] MEDS ORDERED: DOCUSATE SOD 100 MG CAP PO SCH (22:00)
[2024-07-02] VITALS (7 sets, daily range): BP systolic 90–128; BP diastolic 38–64; PULSE 70–85; RESP 17–18; TEMP 97.7–98.8; O2SAT 94–100
[2024-07-02 08:03] LABS: Alanine Aminotransferase 10 U/L (7-40); Albumin 4.3 g/dL (3.2-4.8); Alkaline Phosphatase 107 U/L (46-116); Anion Gap 9 (5-15); Blood Urea Nitrogen 13 mg/dL (9-23); Carbon Dioxide 25 mmol/L (20-31); Chloride 105 mmol/L (98-107); Potassium 3.5 mmol/L (3.5-5.1); Sodium 139 mmol/L (136-145); Triglycerides 61 mg/dL (< 150)
[2024-07-02 08:04] LABS: Aspartate Aminotransferase 19 U/L (13-40); Bilirubin, Total 0.7 mg/dL (0.2-1.0); Total Protein 7.5 g/dL (5.7-8.2)
[2024-07-02 08:10] LABS: Cholesterol 216 mg/dL (< 200); Glucose 126 mg/dL (74-106); HDL Cholesterol 67 mg/dL (40-59); LDL Cholesterol 135 mg/dL (< 100)
[2024-07-02] MEDS: DOCUSATE SOD 100 MG CAP PO SCH (09:20)
[2024-07-02] MEDS: ENOXAPARIN SOD 40 MG/0.4 ML SYRINGE SC SCH (09:20)
[2024-07-02] MEDS: ASPirin 81 mg TAB PO SCH (09:21)
[2024-07-02 10:32] LABS: Basophils # (auto) 0 10 ^3/uL (0-0.2); Basophils % (auto) 0.6 % (0.0-2.0); Eosinophils # (auto) 0.1 10 ^3/uL (0-0.8); Hematocrit 40.4 % (36.0-46.0); Hemoglobin 13.7 g/dL (12.2-16.2); Lymphocytes # (auto) 2.4 10 ^3/uL (0.4-5.4); Lymphocytes % (auto) 38.8 % (10.0-50.0); Mean Corpuscular Hemoglobin 33.8 pg (28.0-32.0); Mean Corpuscular Hgb Conc. 33.9 g/dL (32.0-36.0); Mean Corpuscular Volume 99.6 fL (80.0-100.0); Monocytes # (auto) 0.5 10 ^3/uL (0-1.3); Monocytes % (auto) 7.5 % (0.0-12.0); Neutrophils # (auto) 3.2 10 ^3/uL (1.6-8.6); Neutrophils % (auto) 52.1 % (37.0-80.0); Nucleated Red Blood Cells % 0.1 %; Platelet Count (auto) 336 10^3/uL (140-450); Red Blood Cells 4.05 10^6/uL (4.0-5.20); White Blood Cell 6.1 10^3/uL (4.4-10.8)
--- NOTE | 2024-07-02 11:27 | DVHSR ---
APPROVED REPORT EXAM: Two-dimensional and M-mode echocardiogram with Doppler and color Doppler. Blood Pressure: 114/73 mmHg INDICATION Chest Pain Eval cardiac function and ef RISK FACTORS Obesity: Height: 5'2", Weight: 231 DIMENSIONS LVDd4.4 (3.8-5.7cm)LA (2D)3.5 (1.9-4.0cm)Aortic Root3.2 (2.0-3.7cm) LVDs3.0 (2.5-4.0cm)LA (MM) (1.9-4.0cm)Aortic Cusp Exc1.9 (1.5-2.0cm) EF (%) 60.0 (55-70%)Rt. Atrium4.0 (1.9-4.0cm)Asc. Aorta cm IVSd0.9 (0.7-1.1cm)RV (D) (1.8-2.4cm) PWd0.9 (0.7-1.1cm) Mitral Valve MitralMitral Stenosis E wave0.44m/sMV Mean GR.mmHg A wave0.46m/sMV Peak GR.mmHg E/A ratio1.02D MVAcm2 DECEL [id number] 1/2 [place] Aortic Valve Aortic ValveAortic Stenosis V10.73m/Jatinder Mean GR.2mmHg V20.98m/Jatinder Peak GR.4mmHg LVOT Diameter2.0 (1.8-2.4cm)Doppler AVA2.34cm2 Pulmonic Valve V21.04m/s Tricuspid Valve TR Velocity1.96m/s [id number] Other Information Technically limited study due to body habitus. Conclusion Normal left ventricular size and dimension. Normal left ventricular systolic function estimated ejec tion fraction 60%. There is a grade 1 diastolic dysfunction Normal right ventricular size and dimension. Normal right ventricular systolic function. Normal rig ht ventricular systolic pressure at 18 mm of mercury. Borderline upper normal limit size of the right atrium. Normal-sized left atrium. Normal aortic valve structure and function. Normal mitral valve structure and function. Normal tricuspid valve structure and function. The pulmonary valve is grossly normal. No pericardial effusion.
--- NOTE | 2024-07-02 15:35 | DVHDSRES ---
Discharge Summary Date of Admission Resident Creating Document: JOSEPH TONY RESIDENT Jul 01, 2024 at 14:15 Date of Discharge: Jul 02, 2024 Admitting Diagnosis chest pain Labs/Diagnostic Data: Laboratory Results Test 07/02/24 09:57 07/02/24 07:07 07/01/24 14:45 07/01/24 09:00 White Blood Count 6.1 10^3/uL (4.4-10.8) Red Blood Count 4.05 10^6/uL (4.0-5.20) Hemoglobin 13.7 g/dL (12.2-16.2) Hematocrit 40.4 % (36.0-46.0) Mean Corpuscular Volume 99.6 fL (80.0-100.0) Mean Corpuscular Hemoglobin 33.8 pg (28.0-32.0) Mean Corpuscular Hemoglobin Concent 33.9 g/dL (32.0-36.0) Red Cell Distribution Width 13.0 % (11.8-14.3) Platelet Count 336 10^3/uL (140-450) Mean Platelet Volume 8.5 fL (6.9-10.8) Neutrophils (%) (Auto) 52.1 % (37.0-80.0) Lymphocytes (%) (Auto) 38.8 % (10.0-50.0) Monocytes (%) (Auto) 7.5 % (0.0-12.0) Eosinophils (%) (Auto) 1.0 % (0.0-7.0) Basophils (%) (Auto) 0.6 % (0.0-2.0) Neutrophils # (Auto) 3.2 10 ^3/uL (1.6-8.6) Lymphocytes # (Auto) 2.4 10 ^3/uL (0.4-5.4) Monocytes # (Auto) 0.5 10 ^3/uL (0-1.3) Eosinophils # (Auto) 0.1 10 ^3/uL (0-0.8) Basophils # (Auto) 0 10 ^3/uL (0-0.2) Nucleated Red Blood Cells 0.1 % Sodium Level 139 mmol/L (136-145) Potassium Level 3.5 mmol/L (3.5-5.1) Chloride Level 105 mmol/L (98-107) Carbon Dioxide Level 25 mmol/L (20-31) Anion Gap 9 (5-15) Blood Urea Nitrogen 13 mg/dL (9-23) Creatinine 0.81 mg/dL (0.550-1.02) Glomerular Filtration Rate Calc 88 mL/min (>90) BUN/Creatinine Ratio 16.0 (10.0-20.0) Serum Glucose 126 mg/dL (74-106) Calcium Level 10.0 mg/dL (8.7-10.4) Total Bilirubin 0.7 mg/dL (0.2-1.0) Aspartate Amino Transferase (AST) 19 U/L (13-40) Alanine Aminotransferase (ALT) 10 U/L (7-40) Alkaline Phosphatase 107 U/L (46-116) Total Protein 7.5 g/dL (5.7-8.2) Albumin 4.3 g/dL (3.2-4.8) Triglycerides Level 61 mg/dL (< 150) Cholesterol Level 216 mg/dL (< 200) LDL Cholesterol 135 mg/dL (< 100) HDL Cholesterol 67 mg/dL (40-59) Troponin I High Sensitivity < 3 ng/L (</=34) Phenobarbital Level < 3.0 ug/mL (15.0-40.0) Urine Color Yellow (Yellow) Urine Clarity Turbid (Clear) Urine pH 6.5 (5.0-9.0) Urine Specific [place] 1.026 (1.001-1.035) Urine Protein Trace (Negative) Urine Ketones Negative (Negative) Urine Blood Trace /uL (Negative) Urine Nitrite Negative (Negative) Urine Bilirubin Negative (Negative) Urine Urobilinogen 3 mg/dL (Negative) Urine Leukocyte Esterase Trace /uL (Negative) Urine RBC 6 /hpf (0 - 4) Urine WBC 9 /hpf (0 - 5) Urine Squamous Epithelial Cells Few /hpf (<5) Urine Bacteria None seen /hpf (None Seen) Urine Hyaline Casts Few /lpf (0 - 2) Urine Mucus Few (None Seen) Urine Glucose Normal mg/dL (Normal) Other Laboratory Tests 07/02/24 09:57 07/02/24 07:07 Brief Hx & Hospital Course: Patient is a 49-year-old female with past medical history of seizures who came in due to chest pain that has been ongoing for the last 3 days, 8/10 in intensity, dull in character, worse with breathing relieved with sitting without any radiation. Patient notes she had similar pain 2 weeks ago. Patient also notes that she has a remote history of panic panic attacks. On physical examination, patient had tenderness to palpation involving the anterior chest. Chest x-ray was unremarkable, ultrasonography showed cholelithiasis. Troponins were <3, <3, <3. EKG showed sinus rhythm, consider left ventricular hypertrophy. Echo showed normal left ventricular size and dimension, normal left ventricular systolic function with EF of 60%. Grade 1 diastolic dysfunction. Normal right ventricular size and dimension. Normal right ventricular systolic function. Normal right ventricular systolic pressure at 18 mm of mercury. Borderline upper limits size of the right atrium. Normal size left atrium. Normal aortic valve structure and function. Normal mitral valve structure and function. Normal tricuspid valve structure and function. The pulmonary valve is grossly normal. No pericardial effusion. On the day of discharge, cardiology cleared patient, she had stable vital signs and appeared well. Patient was diagnosed home with ibuprofen q.6 hours as needed for costochondritis. Patient was also scheduled for follow up in the discharge clinic. All questions were answered and concerns addressed. Her hospital course was uncomplicated. General Appearance: Cooperative. Well developed. Well nourished. NAD Head Exam: Normal inspection Neck Exam: Normal inspection. Non-tender. Normal alignment Pulmonary/Respiratory: Anterior chest wall tenderness to palpation. Clear bilateral breath sounds, no crackles, no wheezing. Cardiovascular/Chest: Regular rate and rhythm. No murmurs. No JVD. Peripheral Pulses: 2+ Radial (R). 2+ Radial (L). 2+ Pedal (R). 2+ Pedal (L) Abdominal Exam: Normal bowel sounds. Soft. Generalized lower abdomen tenderness ongoing for 1 year, no visible veins. No hepatospenomegaly. No masses Ankle Exam: Negative ankle edema Lower extremities: Negative lower extremity edema Neuro/Mental Status: A&O x4. Coherent. Thoughts/Psych: Normal thought pattern. Appropriate mood and affect. Good judgement and insight Skin Exam: Normal inspection. Normal color. Warm. Dry Condition at Discharge: Good Final Diagnosis/Problems List functional dyspepsia cholelithiasis without cholecystitis seizure Discharge Disposition: Home Discharge Instruct/Medications Diet: Regular Activity: No Restrictions, As Tolerated Follow Up/Referral: please follow up with pcp in 1-2 weeks please follow up with neurlogist Medications: continue home meds Discharge Statement: "Patient was advised to return to the ER or call 911 if any headaches, dizziness, shortness of breath, chest pain, abdominal pain, bleeding, fevers, or worsening of medical condition. Patient was counseled about treatment plan, medications, possible side effects, patientverbalized understanding. All questions were answered to the best of my ability. This discharge took greater then 30 minutes in planning, reviewing documentation, counseling the patient, and discussing with other team members." ASSESSMENT ASSESSMENT Assessment functional dyspepsia cholelithiasis without cholecystitis seizure Date of Service: Jul 02, 2024 Billing Provider: HARPER SOLER MD Common Visit Codes: 86467-HIZ/OBS DISCH DAY >30min JOSEPH TONY Jul 02, 2024 15:35 HARPER SOLER MD Jul 03, 2024 08:53
[2024-07-02] MEDS ORDERED: IBUP1TAB5 PO (15:42)
[2024-07-02] MEDS ORDERED: ATORVASTATIN 20 MG TAB PO SCH (22:00)
== END 2024-07-02 17:30 | disposition home or self-care (01) | DRG 313 ==
LOC: ER 08:11 → TELE 14:15 → TELE-WESTW 16:32
PROVIDERS: ADMIT Nurse Practitioner Family; ATTEND Nurse Practitioner Family
DX: R07.89 Other chest pain (principal); Z68.44 Body mass index [BMI] 60.0-69.9, adult; K80.20 Calculus of gallbladder without cholecystitis without obstruction; E66.01 Morbid (severe) obesity due to excess calories; G40.909 Epilepsy, unspecified, not intractable, without status epilepticus; Z87.442 Personal history of urinary calculi; Z90.710 Acquired absence of both cervix and uterus; Z79.899 Other long term (current) drug therapy; Z88.8 Allergy status to other drugs, medicaments and biological substances
CPT/HCPCS: 36415; 71045; 76705; 80048; 80053; 80061; 80184; 81001; 84484; 85025; 93005; 93306; 96374; 96375; 99291; G0378; J2405

== ENCOUNTER → 2024-07-22 | Outpatient (CLI) | payer BC ==
[~2024-07-22] MED LIST changes: +IBUP1TAB5 PO
[2024-07-22 11:08] LABS: Basophils # (auto) 0 10 ^3/uL (0-0.2); Basophils % (auto) 0.7 % (0.0-2.0); Eosinophils # (auto) 0.1 10 ^3/uL (0-0.8); Eosinophils % (auto) 1.3 % (0.0-7.0); Hematocrit 39.8 % (36.0-46.0); Hemoglobin 13.3 g/dL (12.2-16.2); Lymphocytes # (auto) 2.6 10 ^3/uL (0.4-5.4); Lymphocytes % (auto) 44.5 % (10.0-50.0); Mean Corpuscular Hemoglobin 33.6 pg (28.0-32.0); Mean Corpuscular Hgb Conc. 33.5 g/dL (32.0-36.0); Mean Corpuscular Volume 100.6 fL (80.0-100.0); Monocytes # (auto) 0.4 10 ^3/uL (0-1.3); Monocytes % (auto) 6.7 % (0.0-12.0); Neutrophils # (auto) 2.7 10 ^3/uL (1.6-8.6); Neutrophils % (auto) 46.8 % (37.0-80.0); Platelet Count (auto) 285 10^3/uL (140-450); Red Blood Cells 3.96 10^6/uL (4.0-5.20); Red Cell Distribution Width 13.2 % (11.8-14.3); White Blood Cell 5.8 10^3/uL (4.4-10.8)
[2024-07-22 11:33] LABS: Urine Bacteria FEW /hpf (None Seen); Urine Blood Negative /uL (Negative); Urine Clarity Turbid (Clear); Urine Color Colorless (Yellow); Urine Mucus FEW (None Seen); Urine Protein, UAD TRACE (Negative); Urine Specific Gravity 1.025 (1.001-1.035); Urine Squamous Epithelial Cell MOD /hpf (<5); Urine Urobilinogen Normal (Negative); Urine WBC 8 /hpf (0 - 5); Urine WBC Clumps PRESENT /hpf (None Seen); Urine pH 7.5 (5.0-9.0)
[2024-07-22 11:46] LABS: Alanine Aminotransferase 10 U/L (7-40); Albumin 4.3 g/dL (3.2-4.8); Alkaline Phosphatase 112 U/L (46-116); Anion Gap 8 (5-15); Aspartate Aminotransferase 21 U/L (13-40); BUN/Creatinine Ratio 14.3 (10.0-20.0); Bilirubin, Total 0.5 mg/dL (0.2-1.0); Blood Urea Nitrogen 10 mg/dL (9-23); Calcium 9.9 mg/dL (8.7-10.4); Carbon Dioxide 22 mmol/L (20-31); Glucose 89 mg/dL (74-106); Sodium 137 mmol/L (136-145); Total Protein 7.5 g/dL (5.7-8.2); Triglycerides 59 mg/dL (< 150)
[2024-07-22 12:06] LABS: Chloride 107 mmol/L (98-107); Cholesterol 209 mg/dL (< 200); HDL Cholesterol 67 mg/dL (40-59); LDL Cholesterol 146 mg/dL (< 100)
[2024-07-22 12:49] LABS: Lipase 62 U/L (12-53)
== END | disposition home or self-care (01) ==
LOC: LAB 10:44
PROVIDERS: ATTEND Student in an Organized Health Care Education/Training Program
DX: R73.9 Hyperglycemia, unspecified (principal); R03.0 Elevated blood-pressure reading, without diagnosis of hypertension; R10.9 Unspecified abdominal pain
CPT/HCPCS: 36415; 80053; 80061; 81001; 83036; 83690; 84443; 85025

== ENCOUNTER 2024-10-11 19:00 | Inpatient (IN) | payer BC ==
[~2024-10-11] VITALS: Ht 157.5 cm; Wt 108.5 kg
--- NOTE | 2024-10-11 19:06 | ECG ---
[facility] Test Date: 2024-10-11 Test Time: 19:05:33 Pat Name: ABY BERRIOS Department: ER Room: 0246 Gender: F Family Development Specialist: ARAVIND : 1975 Requested By: LUCITA ROBERTSON Order Number: [id number] Reading MD: Rodolfo Chicas Measurements Intervals [place] Rate: 108 P: 79 LA: 164 QRS: 71 QRSD: 80 T: -18 QT: 328 QTc: 440 Interpretive Statements Sinus tachycardia Biatrial enlargement Borderline T abnormalities, diffuse leads Electronically Signed On 10-12-2024 15:12:07 PDT by Rodolfo Chicas Please click the below link to view image of tracing.
--- NOTE | 2024-10-11 19:14 | ED.PDOC ---
HPI Comments 49-year-old female with PMHx Seizures presents with a chief complaint of palpitations x 3 days with associated muscle pain. Patient states that her pain is localized to her right chest wall, radiates up her right shoulder, and down her right arm. Patient describes pain as pressure and is worse with movement. Patient is also tender to palpation to the right chest wall. Patient is tachycardic upon arrival. No other symptoms or modifying factors present at this time. Time Seen by MD: 19:07 Primary Care Provider: VITALY Reviewed Notes: Medications, Allergies Allergies: Coded Allergies: Ciprofloxacin (Unverified Allergy, Intermediate, Hives,fever,N/V, 11/21/22) Phenytoin (Verified Allergy, Intermediate, 11/22/22) Carbamazepine (Unverified Allergy, Unknown, 04/04/18) Phenobarbital (Verified Allergy, Unknown, 07/01/24) Home Meds Active Scripts Ibuprofen Micronized (Ibuprofen) 600 Mg Tab, 600 MG PO Q6HPRN PRN for 15 Days, #60 TAB Prov:JOSEPH TONY 07/02/24 Ondansetron (Zofran) 4 Mg Tab, 4 MG PO Q4HPRN PRN, #30 TAB Prov:SILVER BARAJAS DO 11/22/22 Ibuprofen (Ibuprofen) 800 Mg Tab, 800 MG PO TID PRN for 15 Days, #40 TAB Prov:SILVER BARAJAS DO 11/22/22 Hydrocodone-Acetaminophen (Hydrocodone Bitartrate/AC 5-325 mg) 1 Tab Tab, 1 TAB PO Q6HPRN PRN for 5 Days, #20 TAB Prov:SILVER BARAJAS 11/22/22 Docusate Sodium (Colace) 100 Mg Cap, 1 CAP PO BID, #60 CAP 2 Refills Prov:SILVER BARAJAS DO 11/22/22 Hydrocodone-Acetaminophen (Hydrocodone Bitartrate/AC 10-325 mg) 1 Tab Tab, 1 TAB PO Q8HP PRN, #15 TAB Prov:DUTCH GIBSON PAC 10/15/22 Reported Medications Phenobarbital (PHENOBARBITAL) 32.4 Mg Tb, 30 MG PO TID, TAB 11/22/22 Phenobarbital (PHENOBARBITAL) 32.4 Mg Tb, 30 MG PO TID 04/05/18 Information Source: Patient Mode of Arrival: Ambulatory Severity: Moderate Timing: Days Duration: Since onset Prehospital treatment: None Location: Chest (R) Radiation: Shoulder (R), Arm (R) Quality: Pressure Onset: With Light Exertion Cardiac Risk Factors: None PE Risk Factors: None History of: None Associated Signs and Symptoms: Palpitations Past Medical History PAST MEDICAL HISTORY: Gallstones, Kidney Stones, Seizures Surgical History: Hysterectomy ESTATE ATTORNEY History: No Pertinent ESTATE ATTORNEY History Family History Family History: No family hx of Cancer, No family hx of DM, No family hx of Heart rex Social History Smoker: Non-Smoker Alcohol: Occasionally Drugs: Denies Drug Use Lives In: Home Constitutional: denies: chills, diaphoresis, fatigue, fever, malaise, sweats, weakness, others EENTM: denies: blurred vision, double vision, ear bleeding, ear discharge, ear drainage, ear pain, ear ringing, eye pain, eye redness, hearing loss, mouth pain, mouth swelling, nasal discharge, nose bleeding, nose congestion, nose pain, photophobia, tearing, throat pain, throat swelling, voice changes, others Respiratory: denies: cough, hemoptysis, orthopnea, SOB at rest, shortness of breath, SOB with excertion, stridor, wheezing, others Cardiovascular: reports: palpitations; denies: chest pain, dizzy spells, diaphoresis, Dyspnea on exertion, edema, irregular heart beat, left arm pain, lightheadedness, PND, syncope, others Gastrointestinal: denies: abdomen distended, abdominal pain, blood streaked bowels, constipated, diarrhea, dysphagia, difficulty swallowing, hematemesis, melena, nausea, poor appetite, poor fluid intake, rectal bleeding, rectal pain, vomiting, others Genitourinary: denies: abnormal vagina bleeding, burning, dyspareunia, dysuria, flank pain, frequency, hematuria, incontinence, pain, , vagina discharge, urgency, others Neurological: denies: dizziness, fainting, headache, left sided numbness, left sided weakness, numbness, paresthesia, pre-existing deficit, right sided numbness, right sided weakness, seizure, speech problems, tingling, tremors, weakness, others Musculoskeletal: reports: muscle pain; denies: back pain, gout, joint pain, joint swelling, muscle stiffness, neck pain, others Integumetry: denies: bruises, change in color, change in hair/nails, dryness, laceration, lesions, lumps, rash, wounds, others Allergic/Immunocompromised: denies: Difficulty Healing, Frequent Infections, Hives, Itching, others Hematologic/Lymphatic: denies: anemia, blood clots, easy bleeding, easy bruising, swollen glands, others Endocrine: denies: excessive hunger, excessive sweating, excessive thirst, excessive urination, flushing, intolerance to cold, intolerance to heat, unexplained weight gain, unexplained weight loss, others Psychiatric: denies: anxiety, bipolar disorder, depression, hopeless, panic disorder, schizophrenia, sleepless, suicidal, others All Other Systems: Reviewed and Negative Physical Exam General Appearance: No Apparent Distress, Normal HEENT: Normal ENT Inspection, Pharynx Normal, TMs Normal Neck: Full Range of Motion, Non-Tender, Normal, Normal Inspection Respiratory: Chest Non-Tender, Lungs Clear, No Accessory Muscle Use, No Respiratory Distress, Normal Breath Sounds Cardiovascular: No Edema, No JVD, No Murmur, No Gallop, Normal Peripheral Pulses, Regular Rate/Rhythm Breast Exam: Deferred Gastrointestinal: No Organomegaly, Non Tender, No Pulsatile Mass, Normal Bowel Sounds, Soft Genitalia: Deferred Pelvic: Deferred Rectal: Deferred Extremities: No calf tenderness, Normal capillary refill, Normal inspection, Normal range of motion, Non-tender, No pedal edema Musculoskeletal : Apperance: Normal Neurologic: Alert, rehabilitation director II-XII nml as Tested, No Motor Deficits, Normal Affect, Normal Mood, No Sensory Deficits Cerebellar Function: Normal Reflexes: Normal Skin: Dry, Normal Color, Warm Lymphatic: No Adenopathy Was a procedure done? Was a procedure done?: No CP Differential Dx Differential Diagnosis: A-fib, A-Flutter, Angina, Electrolyte Disorder, Hyperthyroidism, Hyperventilation, Hypoxia, MAT, Other X-Ray, Labs, Meds, VS Vital Signs Date Time Temp Pulse Resp B/P (MAP) Pulse Ox O2 Delivery O2 Flow Rate FiO2 10/12/24 00:00 90 10/11/24 23:34 100 20 129/76 (93) 100 10/11/24 21:57 84 10/11/24 21:19 87 14 104/63 (77) 98 10/11/24 20:11 87 10/11/24 20:00 119 18 98 Room Air* 0 21 10/11/24 19:05 108 10/11/24 19:05 99.3 119 20 122/83 (96) 98 99.3 Lab Test 10/11/24 21:10 10/11/24 19:23 Range/Units Troponin I High Sensitivity < 3 L < 3 L </=34 ng/L White Blood Count 8.2 4.4-10.8 10^3/uL Red Blood Count 4.16 4.0-5.20 10^6/uL Hemoglobin 14.2 12.2-16.2 g/dL Hematocrit 41.3 36.0-46.0 % Mean Corpuscular Volume 99.2 80.0-100.0 fL Mean Corpuscular Hemoglobin 34.1 H 28.0-32.0 pg Mean Corpuscular Hemoglobin Concent 34.4 32.0-36.0 g/dL Red Cell Distribution Width 13.4 11.8-14.3 % Platelet Count 363 140-450 10^3/uL Mean Platelet Volume 9.4 6.9-10.8 fL Neutrophils (%) (Auto) 50.2 37.0-80.0 % Lymphocytes (%) (Auto) 39.9 10.0-50.0 % Monocytes (%) (Auto) 7.9 0.0-12.0 % Eosinophils (%) (Auto) 1.2 0.0-7.0 % Basophils (%) (Auto) 0.8 0.0-2.0 % Neutrophils # (Auto) 4.1 1.6-8.6 10 ^3/uL Lymphocytes # (Auto) 3.3 0.4-5.4 10 ^3/uL Monocytes # (Auto) 0.6 0-1.3 10 ^3/uL Eosinophils # (Auto) 0.1 0-0.8 10 ^3/uL Basophils # (Auto) 0.1 0-0.2 10 ^3/uL Nucleated Red Blood Cells 0.2 % Prothrombin Time 10.5 9.3-11.8 sec Prothrombin Time INR 0.99 0.9-1.15 Activated Partial Thromboplast Time 27.1 24.5-34.5 SEC D-Dimer, Quantitative 0.49 0.0-0.49 mg/L FEU Sodium Level 139 136-145 mmol/L Potassium Level 4.0 3.5-5.1 mmol/L Chloride Level 109 H 98-107 mmol/L Carbon Dioxide Level 21 20-31 mmol/L Anion Gap 9 5-15 Blood Urea Nitrogen 13 9-23 mg/dL Creatinine 0.81 0.550-1.02 mg/dL Glomerular Filtration Rate Calc 88 >90 mL/min BUN/Creatinine Ratio 16.0 10.0-20.0 Serum Glucose 104 74-106 mg/dL Lactic Acid Level 1.3 0.4-2.0 mmol/L Calcium Level 9.9 8.7-10.4 mg/dL Total Bilirubin 0.7 0.2-1.0 mg/dL Aspartate Amino Transferase (AST) 26 13-40 U/L Alanine Aminotransferase (ALT) 14 7-40 U/L Alkaline Phosphatase 106 46-116 U/L Total Protein 8.2 5.7-8.2 g/dL Albumin 4.9 H 3.2-4.8 g/dL Thyroid Stimulating Hormone (TSH) 1.57 0.55-4.78 uIU/mL Free Thyroxine (T4) Calculated Pending Current Medications Medications (Trade) Dose Ordered Sig/Zeb Route Start Time Stop Time Status Last Admin Sodium Chloride 1,000 ml @ 1,000 mls/hr Q1H ONCE IVB 10/11/24 19:15 10/11/24 20:14 DC 10/11/24 19:55 Ketorolac Tromethamine (Toradol Injection) 15 mg ONCE ONCE IV 10/11/24 19:15 10/11/24 19:16 DC 10/11/24 19:56 Lorazepam (Ativan Inj) 2 mg ONCE ONCE IV 10/11/24 23:15 10/11/24 23:16 DC 10/11/24 23:31 Levetiracetam 100 ml @ 400 mls/hr ONCE ONCE IV 10/11/24 23:15 10/11/24 23:29 DC 10/11/24 23:31 Time of 1ST Reevaluation: 19:37 Reevaluation 1ST: Unchanged Patient Education/Counseling: Diagnosis, Treatment, Prognosis Family Education/Counseling: No Family Present Departure 1 Departure Time of Disposition: 01:21 Impression: Primary Impression: Intermediate coronary syndrome Additional Impression: Intractable seizures Disposition: 09 ADMITTED INPATIENT Condition: Guarded Discharged With: Self Comments Seizures with Chest Pain and Palpitations Chief Complaint: Palpitations and chest pain with seizure activity History of Present Illness: 49-year-old female with known seizure disorder presents to the ED with palpitations and anterior parasternal chest pain. While under observation in the ED, patient experienced two separate seizure episodes with tonic-clonic activity. The first seizure lasted approximately one minute and required intervention with Ativan. Patient reports compliance with prescribed seizure medications prior to presentation. Review of Systems: Cardiovascular: Positive for palpitations and chest pain Neurologic: Positive for seizure activity All other systems reviewed and negative Medications: Seizure medications (specific agents not mentioned) Ativan (given in ED) Lab Results: CBC: WBC 8.0, otherwise unremarkable Troponin: <3, within normal limits TSH: 1.57, normal Chemistry panel: Unremarkable Imaging and Other Relevant Results: CT head: No acute pathology Medical Decision Making: Summary Statement: 49-year-old female with known seizure disorder presenting with palpitations, chest pain, and two witnessed seizures in the ED requiring intervention Problem List: 1. Intractable seizures 2. Chest pain and palpitations Differential Diagnosis: 1. Breakthrough seizures 2. Medication non-compliance (though denied) 3. Acute cardiac event 4. Metabolic derangement 5. Intracranial pathology ED Course: Patient experienced two seizures during ED stay, received Ativan. Comprehensive workup included cardiac enzymes, thyroid studies, basic labs, and head CT. Given intractable seizures, decision made for admission. Assessment and Plan: 1. Intractable Seizures: - Admit to hospital for neurologic monitoring and further workup - Continue current antiepileptic medications - Neurology consultation 2. Chest Pain/Palpitations: - Initial cardiac workup reassuring with normal troponin - Continue cardiac monitoring during admission - Consider cardiology consultation if symptoms persist Billing Information: ICD-10: G40.911 - Epilepsy, unspecified, intractable ICD-10: R07.89 - Other chest pain ICD-10: R00.2 - Palpitations Critical Care Note Critical Care Time?: Yes (35 min-critical care time only) Critical care comment: Total critical care time: Approximately 36 minutes Due to a high probability of clinically significant, life threatening deterioration, the patient required my highest level of preparedness to intervene emergently and I personally spent this critical care time directly and personally managing the patient. This critical care time included obtaining a history; examining the patient; pulse oximetry; ordering and review of studies; arranging urgent treatment with development of a management plan; evaluation of patient's response to treatment; frequent reassessment; and, discussions with other providers. This critical care time was performed to assess and manage the high probability of imminent, life-threatening deterioration that could result in multi-organ failure. It was exclusive of separately billable procedures and treating other patients. Stability Stability form required: No Heart Score Heart Score: Heart Score Response (Comments) Value History Slightly Suspicious 0 EKG Normal 0 Age 45-64 1 Risk Factors 1 or 2 risk factors 1 Troponin Normal limit 0 Total 2 I personally scribed for LUCITA ROBERTSON MD ([email or web address]) on 10/11/24 at 19:14. Electronically submitted by Rocky Mckinney ([email or web address]). LUCITA ROBERTSON MD Oct 11, 2024 19:14
[2024-10-11 19:53] LABS: Basophils # (auto) 0.1 10 ^3/uL (0-0.2); Eosinophils # (auto) 0.1 10 ^3/uL (0-0.8); Hemoglobin 14.2 g/dL (12.2-16.2); Mean Corpuscular Hemoglobin 34.1 pg (28.0-32.0); Mean Corpuscular Hgb Conc. 34.4 g/dL (32.0-36.0); Nucleated Red Blood Cells % 0.2 %; Red Cell Distribution Width 13.4 % (11.8-14.3)
[2024-10-11 19:55] LABS: Basophils % (auto) 0.8 % (0.0-2.0); Eosinophils % (auto) 1.2 % (0.0-7.0); Hematocrit 41.3 % (36.0-46.0); Lymphocytes # (auto) 3.3 10 ^3/uL (0.4-5.4); Lymphocytes % (auto) 39.9 % (10.0-50.0); Mean Corpuscular Volume 99.2 fL (80.0-100.0); Monocytes # (auto) 0.6 10 ^3/uL (0-1.3); Monocytes % (auto) 7.9 % (0.0-12.0); Neutrophils # (auto) 4.1 10 ^3/uL (1.6-8.6); Neutrophils % (auto) 50.2 % (37.0-80.0); Platelet Count (auto) 363 10^3/uL (140-450); Red Blood Cells 4.16 10^6/uL (4.0-5.20); White Blood Cell 8.2 10^3/uL (4.4-10.8)
[2024-10-11] MEDS: SODIUM CHLORIDE 0.9% 1,000 ML IVB ONE (19:55)
[2024-10-11] MEDS: KETOROLAC TROMETH 30 MG/ML 1ML VIAL IV ONE (19:56)
[2024-10-11 20:00] VITALS: PULSE 119; RESP 18; O2SAT 98
[2024-10-11 20:09] LABS: INR 0.99 (0.9-1.15); Partial Thromboplastin Time 27.1 SEC (24.5-34.5); Prothrombin Time 10.5 sec (9.3-11.8)
[2024-10-11 20:13] LABS: Alanine Aminotransferase 14 U/L (7-40); Alkaline Phosphatase 106 U/L (46-116); Anion Gap 9 (5-15); Aspartate Aminotransferase 26 U/L (13-40); Blood Urea Nitrogen 13 mg/dL (9-23); Calcium 9.9 mg/dL (8.7-10.4); Carbon Dioxide 21 mmol/L (20-31); Glucose 104 mg/dL (74-106); Sodium 139 mmol/L (136-145)
[2024-10-11 20:14] LABS: Bilirubin, Total 0.7 mg/dL (0.2-1.0)
[2024-10-11 20:15] LABS: Albumin 4.9 g/dL (3.2-4.8); Chloride 109 mmol/L (98-107); Total Protein 8.2 g/dL (5.7-8.2)
[2024-10-11] MEDS: LORazepam 2MG/ML-1ML VIAL IV ONE (23:31)
[2024-10-11] MEDS: levETIRAcetam 1000 mg/100ml 100 ML IV ONE (23:31)
[2024-10-11] MEDS: LORazepam 2MG/ML-1ML VIAL ONE (23:31)
[2024-10-12] VITALS (7 sets, daily range): BP systolic 104–114; BP diastolic 42–61; PULSE 72–91; RESP 14–20; TEMP 97.9–98.2; O2SAT 96–98
--- NOTE | 2024-10-12 02:04 | DVH ---
EXAM: CT HEAD WITHOUT CONTRAST INDICATION: intractable seizures / ALOc TECHNIQUE: CT of the head without intravenous contrast. Radiation Dose : 1. Head: CT Dose: CTDI volume is 59.79 mGy. Dose-length product is 1055.64 mGy*cm The dose indicators for CT are the volume Computed Tomography (CT) Dose Index (CTDIvol) and the Dose Length Product (DLP), and are measured in units of mGy and mGy-cm, respectively. These indicators are not patient dose, but values generated from the CT scanner acquisition factors. The report includes radiation exposure data for exposures received during this examination. COMPARISON: None FINDINGS: There is no evidence of acute intracranial hemorrhage, extra-axial collection, mass effect, midline s hift, herniation or hydrocephalus. The ventricles, sulci and cisterns are age appropriate. The sweeney-white differentiation is intact. The visualized paranasal sinuses and mastoid air cells are clear. The surrounding soft tissues and osseous structures are unremarkable. IMPRESSION: 1. No acute intracranial abnormality. Radiation optimization: All CT scans at this facility use at least one of these dose optimization leia hniques: automated exposure control mA and/or kV adjustment per patient size (includes targeted exam s where dose is matched to clinical indication) or iterative reconstruction.
[2024-10-12] MEDS ORDERED: MORPHINE SULFATE INJ 2 MG/ml SYRG IV PRN (07:45)
[2024-10-12] MEDS ORDERED: ACETAMINOPHEN 325 MG TAB PO PRN (07:45)
[2024-10-12] MEDS ORDERED: NITROGLYCERIN 0.4 MG SL TAB SL PRN (07:45)
--- NOTE | 2024-10-12 07:50 | DVH ---
CHEST RADIOGRAPH Indication: palpitations Technique: Single frontal view of the chest was obtained Comparison: None FINDINGS: The cardiac silhouette is unremarkable. The lungs demonstrate no pulmonary airspace consolidation. Th e pulmonary vasculature is prominent. There is no pleural effusion.. There is no pneumothorax. IMPRESSION: 1. Pulmonary vasculature congestion. << >>
--- NOTE | 2024-10-12 08:33 | DVHHP2 ---
History of Present Illness Reason for Visit: Palpitations History of Present Illness This 49-year-old female with past medical history of seizures, presents in the ED with a chief complaint of chest pain x3 days. The patient reports chest sharp pain in nature radiating to right arm, worse on exertion and inhalation. Symptoms is also associated with heart palpitations and shortness of breath. The patient denies dizziness, syncope, abdominal pain, or other acute symptoms. The patient denies history of CAD. Denies smoking, illicit drug, or ETOH abuse. Past Medical History As stated in HPI Past Surgical History Hysterectomy Family History Reviewed, non-contributory to the management of this case. Past Social History The patient lives at home, denies smoking, alcohol or illicit drugs abuse. Review of Systems Constitutional: Yes: Malaise; No: Fever, Chills, Sweats, Weakness, Other Eyes: No: Pain, Vision change, Conjunctivae inflammation, Eyelid inflammation, Other, Redness ENT: No: Ear pain, Ear discharge, Nose pain, Nose discharge, Nose congestion, Mouth pain, Mouth swelling, Throat pain, Throat swelling, Other Respiratory: Shortness of breath; No: Cough, Dry, SOB with excertion, Wheezing, Hemoptysis, Pleuritic Pain, Sputum, Wheezing, Other Cardiovascular: Chest Pain, Palpitations; No: Orthopnea, Paroxysmal Noc. Dyspnea, Edema, Lt Headedness, Other Gastrointestinal: No: Nausea, Vomiting, Abdominal Pain, Diarrhea, Constipation, Melena, Hematochezia, Other Genitourinary: No Dysuria, No Frequency, No Incontinence, No Hematuria, No Retention, No Other Musculoskeletal: No: other, neck pain, shoulder pain, arm pain, back pain, hand pain, leg pain, foot pain Neurological: No: Weakness, Numbness, Incoordination, Change in speech, Confusion, Seizures, Other Allergies: Coded Allergies: Ciprofloxacin (Unverified Allergy, Intermediate, Hives,fever,N/V, 11/21/22) Phenytoin (Verified Allergy, Intermediate, 11/22/22) Carbamazepine (Unverified Allergy, Unknown, 04/04/18) Phenobarbital (Verified Allergy, Unknown, 07/01/24) Medications Current Medications Medications Dose Ordered Sig/Zeb Route Start Time Stop Time Status Last Admin Dose Admin Acetaminophen/ Hydrocodone Bitart 1 tab Q4HP PRN PO 10/12/24 07:45 Ondansetron HCl 4 mg Q4HP PRN IV 10/12/24 07:45 Enoxaparin Sodium 40 mg DAILY SC 10/12/24 10:00 Acetaminophen 650 mg Q6HP PRN PO 10/12/24 07:45 Morphine Sulfate 2 mg Q4HPRN PRN IV 10/12/24 07:45 Nitroglycerin 0.4 mg Q5MINP PRN SL 10/12/24 07:45 Morphine Sulfate 2 mg Q30M PRN IV 10/12/24 07:45 Exam Vital Signs Vital Signs Date Time Temp Pulse Resp B/P (MAP) Pulse Ox O2 Delivery O2 Flow Rate FiO2 10/12/24 07:52 98.2 86 20 105/60 (75) 97 98.2 10/11/24 20:00 Room Air* 0 21 General Appearance: Alert, Oriented X3, Cooperative, mild distress Respiratory: Clear to auscultation, Normal air movement Cardiovascular: Regular rate, Normal S1, Normal S2 Abdominal: Normal bowel sounds, Soft, No tenderness Extremities: No clubbing, No cyanosis, No edema, Normal pulses Skin: No rashes, No breakdown, No significant lesion Neuro: Normal speech, Strength at 5/5 X4 ext, Normal tone Psych/Mental Status: Mental status NL Labs/Xrays Labs Test 10/12/24 07:22 10/11/24 21:10 10/11/24 19:23 Range/Units Magnesium Level 2.4 1.6-2.6 mg/dL Troponin I High Sensitivity < 3 L </=34 ng/L White Blood Count 8.2 4.4-10.8 10^3/uL Red Blood Count 4.16 4.0-5.20 10^6/uL Hemoglobin 14.2 12.2-16.2 g/dL Hematocrit 41.3 36.0-46.0 % Mean Corpuscular Volume 99.2 80.0-100.0 fL Mean Corpuscular Hemoglobin 34.1 H 28.0-32.0 pg Mean Corpuscular Hemoglobin Concent 34.4 32.0-36.0 g/dL Red Cell Distribution Width 13.4 11.8-14.3 % Platelet Count 363 140-450 10^3/uL Mean Platelet Volume 9.4 6.9-10.8 fL Neutrophils (%) (Auto) 50.2 37.0-80.0 % Lymphocytes (%) (Auto) 39.9 10.0-50.0 % Monocytes (%) (Auto) 7.9 0.0-12.0 % Eosinophils (%) (Auto) 1.2 0.0-7.0 % Basophils (%) (Auto) 0.8 0.0-2.0 % Neutrophils # (Auto) 4.1 1.6-8.6 10 ^3/uL Lymphocytes # (Auto) 3.3 0.4-5.4 10 ^3/uL Monocytes # (Auto) 0.6 0-1.3 10 ^3/uL Eosinophils # (Auto) 0.1 0-0.8 10 ^3/uL Basophils # (Auto) 0.1 0-0.2 10 ^3/uL Nucleated Red Blood Cells 0.2 % Prothrombin Time 10.5 9.3-11.8 sec Prothrombin Time INR 0.99 0.9-1.15 Activated Partial Thromboplast Time 27.1 24.5-34.5 SEC D-Dimer, Quantitative 0.49 0.0-0.49 mg/L FEU Sodium Level 139 136-145 mmol/L Potassium Level 4.0 3.5-5.1 mmol/L Chloride Level 109 H 98-107 mmol/L Carbon Dioxide Level 21 20-31 mmol/L Anion Gap 9 5-15 Blood Urea Nitrogen 13 9-23 mg/dL Creatinine 0.81 0.550-1.02 mg/dL Glomerular Filtration Rate Calc 88 >90 mL/min BUN/Creatinine Ratio 16.0 10.0-20.0 Serum Glucose 104 74-106 mg/dL Lactic Acid Level 1.3 0.4-2.0 mmol/L Calcium Level 9.9 8.7-10.4 mg/dL Total Bilirubin 0.7 0.2-1.0 mg/dL Aspartate Amino Transferase (AST) 26 13-40 U/L Alanine Aminotransferase (ALT) 14 7-40 U/L Alkaline Phosphatase 106 46-116 U/L Total Protein 8.2 5.7-8.2 g/dL Albumin 4.9 H 3.2-4.8 g/dL Thyroid Stimulating Hormone (TSH) 1.57 0.55-4.78 uIU/mL PROCEDURE(s): CXRP - CHEST PORTABLE REASON: palpitations ORDER NUMBER(s): [id number], ACCESSION NUMBER(s): [id number] CHEST RADIOGRAPH Indication: palpitations Technique: Single frontal view of the chest was obtained Comparison: None FINDINGS: The cardiac silhouette is unremarkable. The lungs demonstrate no pulmonary airspace consolidation. The pulmonary vasculature is prominent. There is no pleural effusion.. There is no pneumothorax. IMPRESSION: 1. Pulmonary vasculature congestion. Assessment/Plan Assessment/Plan # chest pain to rule out ACS # palpitations Admit to telemetry unit Chest pain protocol Cardiology consult Recent echocardiogram reveals EF 60% Check for electrolytes replete as needed Check UDS # pulmonary vascular congestion Cardiology consult rule out structural heart disease Check BNP Diuretics O2 supplement Repeat chest x-ray in AM # dyslipidemia Statins # seizures Continue with the current medication # obesity Lifestyle modification counseled with diet, regular exercise, and weight loss DVT prophylaxis Medical plan discussed with patient Plan discussed with: Patient My Orders Orders - FLORENTIN TOLEDO TRIM MOUNTER Procedure Category Date Status Time Chest Portable XY 10/12/24 Resulted 07:08 Urinalysis LAB 10/12/24 Logged 07:08 Drug Screen LAB 10/12/24 Logged 07:08 Admit ADMIT 10/12/24 Transmitted 07:32 Code Status CODE 10/12/24 Transmitted 07:32 Hydrocodone-Acet PHA 10/12/24 In Process 5/325mg Tab ([place] 07:45 Ondansetron Hcl PHA 10/12/24 In Process (Zofran) 07:45 Complete Blood Count LAB 10/13/24 Verified 04:00 Comprehensive LAB 10/13/24 Verified Metabolic Panel 04:00 Cardiac DIET 10/12/24 Transmitted Diet-2gna,Lofat,Lochol Breakfast Condition: Fair JACINTA 10/12/24 In Process 07:32 Acetaminophen Tablet PHA 10/12/24 In Process (Tylenol Tablet) 07:45 Morphine Sulfate PHA 10/12/24 In Process Injection 07:45 Nitroglycerin PHA 10/12/24 In Process Sublingual (Ntrostat 07:45 Morphine Sulfate PHA 10/12/24 In Process Injection 07:45 Stat Ekg For Chest JACINTA 10/12/24 In Process Pain 07:32 Notify Of Changes JACINTA 10/12/24 In Process From Base 07:32 Batt Machine Operator For JACINTA 10/12/24 In Process 24 Hours 07:32 Emergency Dysrhythmia JACINTA 10/12/24 In Process Protocol 07:32 Rhythm Strips Once JACINTA 10/12/24 In Process Every Shift 07:32 Oxygen By Nasal RT 10/12/24 Transmitted Cannula 07:32 * Cardiology Consult CONS 10/12/24 Transmitted 07:35 Enoxaparin Sodium PHA 10/12/24 In Process (Lovenox) 10:00 Date of Service: Oct 12, 2024 Billing Provider: FLORENTIN TOLEDO Common Visit Codes: [id number] INP/OBS CARE (HIGH) FLORENTIN TOLEDOP Oct 12, 2024 08:33
[2024-10-12] MEDS: ONDANSETRON HCL 4 MG/2 ML VIAL IV PRN (08:42)
[2024-10-12] MEDS: MORPHINE SULFATE INJ 2 MG/ml SYRG IV PRN (08:44)
[2024-10-12] MEDS: ENOXAPARIN SOD 40 MG/0.4 ML SYRINGE SC SCH (10:12)
[2024-10-12] MEDS: FUROSEMIDE 20 MG/2 ML VIAL IV SCH (10:16)
[2024-10-12] MEDS: ASPirin 81 mg TAB PO SCH (10:16)
[2024-10-12] MEDS: HYDROcodone-ACET 5/325MG TAB PO PRN (10:49)
--- NOTE | 2024-10-12 11:03 | DVHINCON2 ---
Date Seen: Oct 12, 2024 Referring Physician Jose Reason for Consultation Palpitations, Chest Pain History of Present Illness 49-year-old female with PMH for seizures presents to the hospital with chest pain and palpitations. Patient states he has been feeling like her heart has been racing for the last couple of days, also been having chest pain. Chest pain noted to be retrosternal to right-sided, reproducible with palpitation, worsens with deep inhalation, nonradiating, intermittent. Patient also endorses he has been having worsening shortness of breath with exertion and bilateral lower extremity edema. Patient denied any diaphoresis, lightheadedness, syncopal episodes. No previous cardiac history or testing. While in the ER patient with witnessed seizure activity and was treated with Ativan. Troponin negative x2, BNP negative. CT head negative for acute pathology. CXR with pulmonary vascular congestion. D-dimer negative. EKG reviewed and shows sinus tachycardia at 108 beats per minute, biatrial enlargement. Nonspecific ST and T-wave abnormality. Past Medical History Seizures Past Surgical History Denies previous cardiac surgeries Family History: Patient reports no known family medical history. Family History Denies pertinent family cardiac history Social History Denies alcohol, tobacco, or illicit drug use. Allergies: Coded Allergies: Ciprofloxacin (Unverified Allergy, Intermediate, Hives,fever,N/V, 11/21/22) Phenytoin (Verified Allergy, Intermediate, 11/22/22) Carbamazepine (Unverified Allergy, Unknown, 04/04/18) Phenobarbital (Verified Allergy, Unknown, 07/01/24) Home Meds Active Scripts Ibuprofen Micronized (Ibuprofen) 600 Mg Tab, 600 MG PO Q6HPRN PRN for 15 Days, #60 TAB Prov:JOSEPH TONY 07/02/24 Ondansetron (Zofran) 4 Mg Tab, 4 MG PO Q4HPRN PRN, #30 TAB Prov:SILVER BARAJAS DO 11/22/22 Ibuprofen (Ibuprofen) 800 Mg Tab, 800 MG PO TID PRN for 15 Days, #40 TAB Prov:SILVER BARAJAS DO 11/22/22 Hydrocodone-Acetaminophen (Hydrocodone Bitartrate/AC 5-325 mg) 1 Tab Tab, 1 TAB PO Q6HPRN PRN for 5 Days, #20 TAB Prov:SILVER BARAJAS DO 11/22/22 Docusate Sodium (Colace) 100 Mg Cap, 1 CAP PO BID, #60 CAP 2 Refills Prov:SILVER BARAJAS DO 11/22/22 Hydrocodone-Acetaminophen (Hydrocodone Bitartrate/AC 10-325 mg) 1 Tab Tab, 1 TAB PO Q8HP PRN, #15 TAB Prov:DUTCH GIBSON PAC 10/15/22 Reported Medications Phenobarbital (PHENOBARBITAL) 32.4 Mg Tb, 30 MG PO TID, TAB 11/22/22 Phenobarbital (PHENOBARBITAL) 32.4 Mg Tb, 30 MG PO TID 04/05/18 Current Medications Current Medications Medications (Trade) Dose Ordered Sig/Zeb Route PRN Reason Start Time Stop Time Status Last Admin Acetaminophen/ Hydrocodone Bitart (Randolph 5/325MG Tab) 1 tab Q4HP PRN PO MODERATE PAIN (4-6 PAIN SCALE) 10/12/24 07:45 Ondansetron HCl (Zofran) 4 mg Q4HP PRN IV NAUSEA / VOMITING 10/12/24 07:45 10/12/24 08:42 Enoxaparin Sodium (Lovenox) 40 mg DAILY SC 10/12/24 10:00 10/12/24 10:12 Acetaminophen (Tylenol Tablet) 650 mg Q6HP PRN PO PAIN SCALE 1-3 OR TEMP>100.4 10/12/24 07:45 Morphine Sulfate 2 mg Q4HPRN PRN IV SEVERE PAIN (7-10 PAIN SCALE) 10/12/24 07:45 10/12/24 08:44 Nitroglycerin (Ntrostat Sublingual) 0.4 mg Q5MINP PRN SL FOR CHEST PAIN 10/12/24 07:45 Morphine Sulfate 2 mg Q30M PRN IV FOR CHEST PAIN 10/12/24 07:45 Furosemide (Lasix Injection) 20 mg DAILY IV 10/12/24 10:00 10/12/24 10:16 Aspirin 81 mg DAILY PO 10/12/24 10:00 10/12/24 10:16 Atorvastatin Calcium (Lipitor) 40 mg HS PO 10/12/24 22:00 Phenobarbital 32.4 mg TID PO 10/12/24 14:00 Future Hold Review of Systems Constitutional: No: Fever, Chills, Sweats, , Other positive: Weakness, Malaise Eyes: No: Pain, Vision change, Conjunctivae inflammation, Eyelid inflammation, Other, Redness ENT: No: Ear pain, Ear discharge, Nose pain, Nose discharge, Nose congestion, Mouth pain, Mouth swelling, Throat pain, Throat swelling, Other Respiratory: No: Cough, Dry, Shortness of breath, , Wheezing, Hemoptysis, Pleuritic Pain, Sputum, Wheezing, Other positive: SOB with exertion Cardiovascular: ; No: , Orthopnea, Paroxysmal Noc. Dyspnea, Edema, Lt Headedness, Other positive: Chest Pain Palpitations Gastrointestinal: No: Nausea, Vomiting, Abdominal Pain, Diarrhea, Constipation, Melena, Hematochezia, Other Genitourinary: No Dysuria, No Frequency, No Incontinence, No Hematuria, No Retention, No Other Musculoskeletal: neck pain; No: other, shoulder pain, arm pain, back pain, hand pain, leg pain, foot pain Skin: No: Rash, Lesions, Jaundice, Bruising, Other Neurological: Other (Dizziness, headache.); No: Weakness, Numbness, Incoordination, Change in speech, Confusion, Seizures Vital Signs Vital Signs Date Time Temp Pulse Resp B/P (MAP) Pulse Ox O2 Delivery O2 Flow Rate FiO2 10/12/24 10:16 105/64 10/12/24 09:14 78 17 10/12/24 09:00 97 10/12/24 07:52 98.2 98.2 10/11/24 20:00 Room Air* 0 21 Physical Exam General appearance: Patient is well-developed, well-nourished, in no acute distress. HEENT: Exam shows: Normocephalic, atraumatic, PERRLA, EOMI Neck: Supple, no bruits Chest: Equal chest excursion bilaterally. Breath sounds normal-no rales or wheezes. Heart: Rhythm: Regular rate; no murmur or gallop Abdomen: Exam shows: Soft, nontender, nondistended Musculoskeletal: No clubbing, no cyanosis, n+ lower extremity edema Dermatology: Skin warm, moist. Neurological: Exam shows: Alert and oriented x4, normal speech Available prior records, labs, EKG, rhythm strips reviewed and interpreted Labs/Diagnostic Data Labs Test 10/12/24 07:22 10/11/24 21:10 10/11/24 19:23 Range/Units Magnesium Level 2.4 1.6-2.6 mg/dL B-Type Natriuretic Peptide 23.91 0-100 pg/mL Troponin I High Sensitivity < 3 L </=34 ng/L White Blood Count 8.2 4.4-10.8 10^3/uL Red Blood Count 4.16 4.0-5.20 10^6/uL Hemoglobin 14.2 12.2-16.2 g/dL Hematocrit 41.3 36.0-46.0 % Mean Corpuscular Volume 99.2 80.0-100.0 fL Mean Corpuscular Hemoglobin 34.1 H 28.0-32.0 pg Mean Corpuscular Hemoglobin Concent 34.4 32.0-36.0 g/dL Red Cell Distribution Width 13.4 11.8-14.3 % Platelet Count 363 140-450 10^3/uL Mean Platelet Volume 9.4 6.9-10.8 fL Neutrophils (%) (Auto) 50.2 37.0-80.0 % Lymphocytes (%) (Auto) 39.9 10.0-50.0 % Monocytes (%) (Auto) 7.9 0.0-12.0 % Eosinophils (%) (Auto) 1.2 0.0-7.0 % Basophils (%) (Auto) 0.8 0.0-2.0 % Neutrophils # (Auto) 4.1 1.6-8.6 10 ^3/uL Lymphocytes # (Auto) 3.3 0.4-5.4 10 ^3/uL Monocytes # (Auto) 0.6 0-1.3 10 ^3/uL Eosinophils # (Auto) 0.1 0-0.8 10 ^3/uL Basophils # (Auto) 0.1 0-0.2 10 ^3/uL Nucleated Red Blood Cells 0.2 % Prothrombin Time 10.5 9.3-11.8 sec Prothrombin Time INR 0.99 0.9-1.15 Activated Partial Thromboplast Time 27.1 24.5-34.5 SEC D-Dimer, Quantitative 0.49 0.0-0.49 mg/L FEU Sodium Level 139 136-145 mmol/L Potassium Level 4.0 3.5-5.1 mmol/L Chloride Level 109 H 98-107 mmol/L Carbon Dioxide Level 21 20-31 mmol/L Anion Gap 9 5-15 Blood Urea Nitrogen 13 9-23 mg/dL Creatinine 0.81 0.550-1.02 mg/dL Glomerular Filtration Rate Calc 88 >90 mL/min BUN/Creatinine Ratio 16.0 10.0-20.0 Serum Glucose 104 74-106 mg/dL Lactic Acid Level 1.3 0.4-2.0 mmol/L Calcium Level 9.9 8.7-10.4 mg/dL Total Bilirubin 0.7 0.2-1.0 mg/dL Aspartate Amino Transferase (AST) 26 13-40 U/L Alanine Aminotransferase (ALT) 14 7-40 U/L Alkaline Phosphatase 106 46-116 U/L Total Protein 8.2 5.7-8.2 g/dL Albumin 4.9 H 3.2-4.8 g/dL Thyroid Stimulating Hormone (TSH) 1.57 0.55-4.78 uIU/mL Assessment Atypical Chest Pain Palpitations Pulmonary congestion, R/O CHF Seizures Plan/Recommendation Case Discussed with Dr Chicas. Breathing stable on room air, previous echo 06/2024 with preserved LV and RV function, no significant valvular structural abnormalities, EF 60%, check limited echo. Being diuresed with Lasix 20 mg IV daily monitor strict I&Os. Continue aspirin and statin. Critical care, time spent: 40 minutes This medical document was created using an electronic medical record system with voice recognition software and computerized dictation system. Although this document has been carefully reviewed, there might still be some phonetic and typographical errors. Occasional wrong-word or ``sound-alike substitutions may have occurred due to the inherent limitations of voice recognition software. These areas are purely typographical due to imperfections of the software programs and do not reflect any compromise in the patient's medical care. Please read the chart carefully and recognize, using context, where these substitutions have occurred. Thank you for allowing me to participate in the management of this patient. The treatment plan was discussed with and agreed upon by patient/family including requesting consultants and ordering of imaging/procedures. Plan discussed with: Patient NYHA Physical activity limitations: Class2(Slight)fatigue,sob Date of Service: Oct 12, 2024 Billing Provider: LALITHA MORILLO Cardiology Common Codes: [id number] INP/OBS CARE (High), [id number] CARE 30-74 MIN LALITHA MORILLO Oct 12, 2024 11:03
[2024-10-12] MEDS: PHENobarbital 32.4 MG TAB PO SCH (13:38)
[2024-10-12 13:58] LABS: Urine Bacteria None Seen /hpf (None Seen)
[2024-10-12 14:14] LABS: Urine Blood Negative /uL (Negative); Urine Clarity Clear (Clear); Urine Color Colorless (Yellow); Urine Protein, UAD Negative (Negative); Urine Specific Gravity 1.006 (1.001-1.035); Urine Squamous Epithelial Cell FEW /hpf (<5); Urine Urobilinogen Normal (Negative); Urine WBC 1 /HPF (0-5)
[2024-10-12 14:19] LABS: Opiate Scree,Urine Neg (NEGATIVE)
[2024-10-12 14:20] LABS: Amphetamine Screen, Urine Neg (NEGATIVE); Barbiturate Scree,Urine Neg (NEGATIVE); Benzodiazephine Screen, Urine Neg (NEGATIVE); Cannabinoid Screen, Urine Neg (NEGATIVE); Cocaine Screen, Urine Neg (NEGATIVE); Phencyclidine Screen, Urine Neg (NEGATIVE)
--- NOTE | 2024-10-12 15:04 | DVHSR ---
APPROVED REPORT EXAM: LIMITED Two-dimensional and M-mode echocardiogram with Doppler and color Doppler. Blood Pressure: 105/60 mmHg INDICATION Palpitations RISK FACTORS Height: 62, Weight: 216 DIMENSIONS LVDd4.5 (3.8-5.7cm)LA (2D) (1.9-4.0cm)Aortic Root (2.0-3.7cm) LVDs3.0 (2.5-4.0cm)LA (MM) (1.9-4.0cm)Aortic Cusp Exc (1.5-2.0cm) EF (%) 63.0 (55-70%)Rt. Atrium (1.9-4.0cm)Asc. Aorta cm Mitral Valve MitralMitral Stenosis E/A ratio0.02D MVAcm2 Tricuspid Valve [id number] Other Information Technically limited study due to LIMITED FOR EF AND RVSP ONLY. Conclusion Sinus rhythm. Normal chamber sizes. Valves are normal. Left ventricular systolic performance is preserved at 60% with normal right ventricular function. Dopplers normal. No pericardial effusion masses or vegetations.
[2024-10-12] MEDS: ATORVASTATIN 20 MG TAB PO SCH (21:18)
[2024-10-13] VITALS (9 sets, daily range): BP systolic 94–125; BP diastolic 33–77; PULSE 71–94; RESP 14–16; TEMP 98–98.7; O2SAT 97–99
--- NOTE | 2024-10-13 06:22 | DVH ---
EXAM: XR Chest, 1 View CLINICAL INDICATION: pulm vascular congestion TECHNIQUE: Frontal view of the chest. COMPARISON: XY CHEST PORTABLE on DOS: 10/12/24, XY CHEST PORTABLE on DOS: 07/01/24, XY CHEST PORTABLE on DOS: 07/15/23, CHEST PORTABLE on DOS: 06/04/22, CXRP on DOS: 06/04/22 FINDINGS: LUNGS AND PLEURAL SPACES: See below. HEART: Cardiomegaly with mild congestion. MEDIASTINUM: Unremarkable. Normal mediastinal contour. BONES/JOINTS: Unremarkable. No acute fracture. OTHER FINDINGS: . IMPRESSION: Cardiomegaly with mild congestion.
[2024-10-13 06:55] LABS: Basophils # (auto) 0 10 ^3/uL (0-0.2); Basophils % (auto) 0.8 % (0.0-2.0); Eosinophils # (auto) 0.1 10 ^3/uL (0-0.8); Eosinophils % (auto) 1.4 % (0.0-7.0); Hematocrit 36.5 % (36.0-46.0); Hemoglobin 12.7 g/dL (12.2-16.2); Lymphocytes # (auto) 2.5 10 ^3/uL (0.4-5.4); Lymphocytes % (auto) 47.4 % (10.0-50.0); Mean Corpuscular Hemoglobin 34.4 pg (28.0-32.0); Mean Corpuscular Hgb Conc. 34.7 g/dL (32.0-36.0); Mean Corpuscular Volume 99.1 fL (80.0-100.0); Monocytes # (auto) 0.4 10 ^3/uL (0-1.3); Monocytes % (auto) 7.4 % (0.0-12.0); Neutrophils # (auto) 2.3 10 ^3/uL (1.6-8.6); Nucleated Red Blood Cells % 0.1 %; Platelet Count (auto) 253 10^3/uL (140-450); Red Blood Cells 3.68 10^6/uL (4.0-5.20); Red Cell Distribution Width 13.1 % (11.8-14.3); White Blood Cell 5.3 10^3/uL (4.4-10.8)
[2024-10-13 07:07] LABS: Alkaline Phosphatase 87 U/L (46-116); Anion Gap 8 (5-15); Aspartate Aminotransferase 13 U/L (13-40); BUN/Creatinine Ratio 19.7 (10.0-20.0); Blood Urea Nitrogen 14 mg/dL (9-23); Calcium 9.3 mg/dL (8.7-10.4); Carbon Dioxide 23 mmol/L (20-31); Glucose 102 mg/dL (74-106); Potassium 3.9 mmol/L (3.5-5.1); Sodium 139 mmol/L (136-145)
[2024-10-13 07:08] LABS: Bilirubin, Total 0.8 mg/dL (0.2-1.0)
[2024-10-13 07:09] LABS: Alanine Aminotransferase < 9 U/L (7-40); Chloride 108 mmol/L (98-107)
--- NOTE | 2024-10-13 12:04 | ECG ---
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
[2024-10-13] MEDS ORDERED: CYCL-837 PO (13:26)
[2024-10-13] MEDS: SODIUM CHLORIDE 0.9% 1,000 ML IV ONE (13:26)
[2024-10-13] MEDS: BACLOFEN 10 MG TAB PO ONE (13:26)
[2024-10-13] MEDS: PANTOPRAZOLE 40 MG/10 ML VIAL INJ IV ONE (13:27)
[2024-10-13] MEDS: KETOROLAC TROMETH 30 MG/ML 1ML VIAL IV ONE (13:27)
--- NOTE | 2024-10-13 13:28 | ECG ---
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
[2024-10-13 14:52] LABS: COVID19 ANTIGEN SOFIA FIA NEGATIVE (NEGATIVE); Rapid Influenza A Negative (Negative); Rapid Influenza B Negative (Negative)
--- NOTE | 2024-10-13 15:10 | DVHDSRES ---
Discharge Summary Date of Admission Resident Creating Document: LEN BETANCOURT RESDIENT Oct 12, 2024 at 07:32 Date of Discharge: Oct 13, 2024 Admitting Diagnosis Chest pain Wounds: Labs/Diagnostic Data: Laboratory Results Test 10/13/24 12:40 10/13/24 06:23 10/12/24 13:50 10/12/24 07:22 Influenza Type A Antigen Negative (Negative) Influenza Type B Antigen Negative (Negative) SARS-CoV-2 Antigen (Rapid) Negative (NEGATIVE) White Blood Count 5.3 10^3/uL (4.4-10.8) Red Blood Count 3.68 10^6/uL (4.0-5.20) Hemoglobin 12.7 g/dL (12.2-16.2) Hematocrit 36.5 % (36.0-46.0) Mean Corpuscular Volume 99.1 fL (80.0-100.0) Mean Corpuscular Hemoglobin 34.4 pg (28.0-32.0) Mean Corpuscular Hemoglobin Concent 34.7 g/dL (32.0-36.0) Red Cell Distribution Width 13.1 % (11.8-14.3) Platelet Count 253 10^3/uL (140-450) Mean Platelet Volume 8.7 fL (6.9-10.8) Neutrophils (%) (Auto) 43.0 % (37.0-80.0) Lymphocytes (%) (Auto) 47.4 % (10.0-50.0) Monocytes (%) (Auto) 7.4 % (0.0-12.0) Eosinophils (%) (Auto) 1.4 % (0.0-7.0) Basophils (%) (Auto) 0.8 % (0.0-2.0) Neutrophils # (Auto) 2.3 10 ^3/uL (1.6-8.6) Lymphocytes # (Auto) 2.5 10 ^3/uL (0.4-5.4) Monocytes # (Auto) 0.4 10 ^3/uL (0-1.3) Eosinophils # (Auto) 0.1 10 ^3/uL (0-0.8) Basophils # (Auto) 0 10 ^3/uL (0-0.2) Nucleated Red Blood Cells 0.1 % Sodium Level 139 mmol/L (136-145) Potassium Level 3.9 mmol/L (3.5-5.1) Chloride Level 108 mmol/L (98-107) Carbon Dioxide Level 23 mmol/L (20-31) Anion Gap 8 (5-15) Blood Urea Nitrogen 14 mg/dL (9-23) Creatinine 0.71 mg/dL (0.550-1.02) Glomerular Filtration Rate Calc 104 mL/min (>90) BUN/Creatinine Ratio 19.7 (10.0-20.0) Serum Glucose 102 mg/dL (74-106) Calcium Level 9.3 mg/dL (8.7-10.4) Total Bilirubin 0.8 mg/dL (0.2-1.0) Aspartate Amino Transferase (AST) 13 U/L (13-40) Alanine Aminotransferase (ALT) < 9 U/L (7-40) Alkaline Phosphatase 87 U/L (46-116) Total Protein 7.0 g/dL (5.7-8.2) Albumin 4.0 g/dL (3.2-4.8) Urine Color Colorless (Yellow) Urine Clarity Clear (Clear) Urine pH 5.0 (5.0-9.0) Urine Specific [place] 1.006 (1.001-1.035) Urine Protein Negative (Negative) Urine Ketones Negative (Negative) Urine Blood Negative /uL (Negative) Urine Nitrite Negative (Negative) Urine Bilirubin Negative (Negative) Urine Urobilinogen Normal mg/dL (Negative) Urine Leukocyte Esterase Negative /uL (Negative) Urine RBC <1 /hpf (0 - 4) Urine Microscopic WBC 1 /HPF (0-5) Urine Squamous Epithelial Cells Few /hpf (<5) Urine Bacteria None seen /hpf (None Seen) Urine Glucose Normal mg/dL (Normal) Urine Opiates Screen Neg (NEGATIVE) Urine Fentanyl Screen Neg (NEGATIVE) Urine Barbiturates Screen Neg (NEGATIVE) Urine Phencyclidine Screen Neg (NEGATIVE) Urine Amphetamines Screen Neg (NEGATIVE) Urine Benzodiazepines Screen Neg (NEGATIVE) Urine Cocaine Screen Neg (NEGATIVE) Urine Cannabinoids Screen Neg (NEGATIVE) Magnesium Level 2.4 mg/dL (1.6-2.6) B-Type Natriuretic Peptide 23.91 pg/mL (0-100) Test 10/11/24 21:10 10/11/24 19:23 Troponin I High Sensitivity < 3 ng/L (</=34) Prothrombin Time 10.5 sec (9.3-11.8) Prothrombin Time INR 0.99 (0.9-1.15) Activated Partial Thromboplast Time 27.1 SEC (24.5-34.5) D-Dimer, Quantitative 0.49 mg/L FEU (0.0-0.49) Lactic Acid Level 1.3 mmol/L (0.4-2.0) Thyroid Stimulating Hormone (TSH) 1.57 uIU/mL (0.55-4.78) Free Thyroxine (T4) Calculated 0.96 ng/dL (0.89-1.76) Other Laboratory Tests 10/13/24 06:23 Brief Hx & Hospital Course: 49-year-old female with PMH for seizures presents to the hospital with chest pain and palpitations. Patient states he has been feeling like her heart has been racing for the last couple of days, also been having chest pain. Chest pain noted to be retrosternal to right-sided, reproducible with palpitation, worsens with deep inhalation, nonradiating, intermittent. Patient denied any diaphoresis, lightheadedness, syncopal episodes. No previous cardiac history or testing. Physical examination was not significant. PMHx: Seizure PSHx: Hysterectomy Family history: Not contributory Social history: Denies smoking, or any other drug use. Lives with the family at home, Home medication: Phenobarbital for seizure Allergic history: Carbamazepine, ciprofloxacin and phenytoin Hospital course: Patient was admitted for the workup of possible ACS. EKG showed normal sinus rhythm with no acute ST or T-wave changes, serial trop I was within normal limits. Cardiology consulted, performed Echo, normal study with EF 60%, recommended medical management. Head CT scan was performed and showed no acute intracranial abnormalities. Patient was given aspirin, atorvastatin and pain killers. Patient was observed with telemetry for 1 days, and showed no events. On 10/13/2024, the patient was feeling better since admission and had no chest pain. Discharge plan discussed with the patient and the patient was discharged home. Discharge plan: Cyclobenzaprine 5 mg daily for 5 days Follow up with the PCP within 1 week of the discharge. Continue home medicine, phenobarbital for seizure Consulted for lifestyle changes, including physical activity and healthy food intake for weight loss. Consults/Reason for consult Cardiology: For possible ACS Operations or Procedures [facility] [address], [place], [place] - [address] Ph: [phone] DIAGNOSTIC IMAGING Diagnostic Imaging Report : [id number] Signed PATIENT: ABY BERRIOS ACCT: [id number] UNIT: [id number] : 1975 LOC: [facility] ROOM / BED: [facility] / A AGE / SEX: 49 / F ADM STATUS: ADM IN SERVICE 08 ORDERING PHYSICIAN: LALITHA MORILLO PROCEDURE(s): ECIDC - ECHO 2D MODE CARDIAC DOP REASON: palpitations ORDER NUMBER(s): [id number], ACCESSION NUMBER(s): [id number] APPROVED REPORT EXAM: LIMITED Two-dimensional and M-mode echocardiogram with Doppler and color Doppler. Blood Pressure: 105/60 mmHg INDICATION Palpitations RISK FACTORS Height: 62, Weight: 216 DIMENSIONS LVDd 4.5 (3.8-5.7cm) LA (2D) (1.9-4.0cm) Aortic Root (2.0-3.7cm) LVDs 3.0 (2.5-4.0cm) LA (MM) (1.9-4.0cm) Aortic Cusp Exc (1.5- 2.0cm) EF (%) 63.0 (55-70%) Rt. Atrium (1.9-4.0cm) Asc. Aorta cm Mitral Valve Mitral Mitral Stenosis E/A ratio 0.0 2D MVA cm2 Tricuspid Valve RVSP 3mmHg Other Information Technically limited study due to LIMITED FOR EF AND RVSP ONLY. Conclusion Sinus rhythm. Normal chamber sizes. Valves are normal. Left ventricular systolic performance is preserved at 60% with normal right ventricular function. Dopplers normal. No pericardial effusion masses or vegetations. SIGNED BY: CLEO CHAVEZ Sr., MD SIGNED DATE/TIME: 10/12/24 150 CC: [address] [address] Ph: [phone] DIAGNOSTIC IMAGING Diagnostic Imaging Report : [id number] Signed PATIENT: ABY BERRIOS ACCT: [id number] UNIT: [id number] : 1975 LOC: ER ROOM / BED: / AGE / SEX: 49 / F ADM STATUS: REG ER SERVICE 0119 ORDERING PHYSICIAN: LUCITA ROBERTSON MD PROCEDURE(s): HWOCT - HEAD WITHOUT CONTRAST REASON: intractable seizures / ALOc ORDER NUMBER(s): [id number], ACCESSION NUMBER(s): [id number] EXAM: CT HEAD WITHOUT CONTRAST INDICATION: intractable seizures / ALOc TECHNIQUE: CT of the head without intravenous contrast. Radiation Dose : 1. Head: CT Dose: CTDI volume is 59.79 mGy. Dose-length product is 1055.64 mGy*cm The dose indicators for CT are the volume Computed Tomography (CT) Dose Index (CTDIvol) and the Dose Length Product (DLP), and are measured in units of mGy and mGy-cm, respectively. These indicators are not patient dose, but values generated from the CT scanner acquisition factors. The report includes radiation exposure data for exposures received during this examination. COMPARISON: None FINDINGS: There is no evidence of acute intracranial hemorrhage, extra-axial collection, mass effect, midline shift, herniation or hydrocephalus. The ventricles, sulci and cisterns are age appropriate. The sweeney-white differentiation is intact. The visualized paranasal sinuses and mastoid air cells are clear. The surrounding soft tissues and osseous structures are unremarkable. IMPRESSION: 1. No acute intracranial abnormality. Radiation optimization: All CT scans at this facility use at least one of these dose optimization techniques: automated exposure control mA and/or kV adjustment per patient size (includes targeted exams where dose is matched to clinical indication) or iterative reconstruction. ATED BY: AMRIK RECIO MD DICTATED DATE/TIME: 10/12/24201 SIGNED BY: AMRIK RECIO MD SIGNED DATE/TIME: 10/12/24201 CC: Condition at Discharge: Stable Final Diagnosis/Problems List Chest pain, likely due to musculoskeletal pain/costochondritis ? GERD/peptic ulcer disease Ruled out ACS History of seizure Morbid obesity Dyslipidemia Ruled out CHF Possible MAYO Discharge Disposition: Home Discharge Instruct/Medications Diet: Regular Activity: No Restrictions, As Tolerated Follow Up/Referral: Follow up with the PCP within 1 week of the discharge Medications: Cyclobenzaprine 5 mg daily for 5 days Continue home meds, phenobarbital Discharge Statement: "Patient was advised to return to the ER or call 911 if any headaches, dizziness, shortness of breath, chest pain, abdominal pain, bleeding, fevers, or worsening of medical condition. Patient was counseled about treatment plan, medications, possible side effects, patientverbalized understanding. All questions were answered to the best of my ability. This discharge took greater then 30 minutes in planning, reviewing documentation, counseling the patient, and discussing with other team members." ASSESSMENT ASSESSMENT Assessment Musculoskeletal pain Ruled out ACS LEN BETANCOURT Oct 13, 2024 15:10
[2024-10-13] MEDS ORDERED: CYCL-614 PO (15:33)
[2024-10-14] MEDS ORDERED: PANTOPRAZOLE 40 MG/10 ML VIAL INJ IV SCH (10:00)
== END 2024-10-13 17:22 | disposition home or self-care (01) | DRG 206 ==
LOC: ER 19:04 → OVERFLOW 10-12 07:32 → EAST 10-12 10:42 → TELE-EAST 10-12 23:24
PROVIDERS: ADMIT Student in an Organized Health Care Education/Training Program; ATTEND Emergency Medicine
DX: M94.0 Chondrocostal junction syndrome [Tietze] (principal); G40.919 Epilepsy, unspecified, intractable, without status epilepticus; Z68.41 Body mass index [BMI] 40.0-44.9, adult; E78.5 Hyperlipidemia, unspecified; K21.9 Gastro-esophageal reflux disease without esophagitis; K27.9 Peptic ulcer, site unspecified, unspecified as acute or chronic, without hemorrhage or perforation; G47.33 Obstructive sleep apnea (adult) (pediatric); Z20.822 Contact with and (suspected) exposure to COVID-19; K80.20 Calculus of gallbladder without cholecystitis without obstruction; E66.01 Morbid (severe) obesity due to excess calories; Z88.1 Allergy status to other antibiotic agents; Z88.8 Allergy status to other drugs, medicaments and biological substances; Z79.1 Long term (current) use of non-steroidal anti-inflammatories (NSAID); Z79.899 Other long term (current) drug therapy; Z79.891 Long term (current) use of opiate analgesic; Z87.442 Personal history of urinary calculi; Z90.710 Acquired absence of both cervix and uterus
CPT/HCPCS: 36415; 70450; 71045; 80053; 80307; 81001; 83605; 83735; 83880; 84439; 84443; 84484; 85025; 85379; 85610; 85730; 87081; 87426; 87804; 93005; 93306; 96361; 96374; 96375; 99291; G0378; J1885; J2405; J2470

== ENCOUNTER 2024-10-14 03:23 | Emergency (ER) | payer BC ==
[~2024-10-14] VITALS: Ht 157.5 cm; Wt 107.0 kg
[~2024-10-14 03:23] MED LIST changes: +CYCL-614 PO
[2024-10-14 03:30] VITALS: BP 108/69; RESP 16; TEMP 98.4; O2SAT 98
--- NOTE | 2024-10-14 03:59 | ED.PDOC ---
History of Present Illness HPI Comments 49-year-old female presents with a chief complaint of abdominal discomfort, nausea, vomiting, and chest pain x 3 days. Patient was just seen here at this hospital and was discharged yesterday after having a full cardiac workup. Patient had echo which showed an EF of 60% and was cleared by Cardiology. Patient mentions that since being discharged she has been having nausea and vomiting with chest pain again. No other symptoms or modifying factors present at this time. Chief Complaint: Palpitations Time Seen by MD: 03:55 Primary Care Provider: HAIDER Reviewed Notes: Medications, Allergies Allergies: Coded Allergies: Ciprofloxacin (Unverified Allergy, Intermediate, Hives,fever,N/V, 11/21/22) Phenytoin (Verified Allergy, Intermediate, 11/22/22) Carbamazepine (Unverified Allergy, Unknown, 04/04/18) Home Meds Active Scripts Cyclobenzaprine HCl (Cyclobenzaprine Hydrochlo) 5 Mg Tab, 5 MG PO HS for 5 Days, #5 TAB 1 Refill Prov:LEN BETANCOURT 10/13/24 Ibuprofen Micronized (Ibuprofen) 600 Mg Tab, 600 MG PO Q6HPRN PRN for 15 Days, #60 TAB Prov:JOSEPH TONY [facility] 07/02/24 Ondansetron (Zofran) 4 Mg Tab, 4 MG PO Q4HPRN PRN, #30 TAB Prov:SILVER BARAJAS DO 11/22/22 Ibuprofen (Ibuprofen) 800 Mg Tab, 800 MG PO TID PRN for 15 Days, #40 TAB Prov:PENELOPEHELLENSILVER DO 11/22/22 Hydrocodone-Acetaminophen (Hydrocodone Bitartrate/AC 5-325 mg) 1 Tab Tab, 1 TAB PO Q6HPRN PRN for 5 Days, #20 TAB Prov:SILVER BARAJAS 11/22/22 Docusate Sodium (Colace) 100 Mg Cap, 1 CAP PO BID, #60 CAP 2 Refills Prov:SILVER BARAJAS 11/22/22 Hydrocodone-Acetaminophen (Hydrocodone Bitartrate/AC 10-325 mg) 1 Tab Tab, 1 TAB PO Q8HP PRN, #15 TAB Prov:DUTCH GIBSON PAC 10/15/22 Reported Medications Phenobarbital (PHENOBARBITAL) 32.4 Mg Tb, 30 MG PO TID, TAB 11/22/22 Phenobarbital (PHENOBARBITAL) 32.4 Mg Tb, 30 MG PO TID 04/05/18 Information Source: Patient Mode of Arrival: Ambulatory Severity: Moderate Timing: Days Duration: Since onset Prehospital treatment: None Vital Signs Vital Signs Date Time Temp Pulse Resp B/P (MAP) Pulse Ox O2 Delivery O2 Flow Rate FiO2 10/14/24 04:18 78 10/14/24 03:30 98.4 16 108/69 (82) 98 98.4 Physical Exam General: Awake, alert and oriented. No acute distress. Skin: Skin in warm, dry and intact. Appropriate color for ethnicity. HEENT: The head is normocephalic and atraumatic. Conjunctivae are clear without exudates or hemorrhage. Sclera is non-icteric. EOM are intact. No signs of nystagmus. Eyelids are normal in appearance without swelling or lesions. Oral mucosa is pink and moist Neck: The neck is supple with normal range of motion. No JVD. Cardiac: Heart rate and rhythm are normal. No murmurs, gallops, or rubs are auscultated. Respiratory: No signs of respiratory distress. Lung sounds are clear in all lobes bilaterally without rales, ronchi, or wheezes. Abdominal: Abdomen is soft, non-tender without distention. Bowel sounds are present and normoactive in all four quadrants. Extremities: Upper and lower extremities are atraumatic in appearance without deformity or edema. Neurological: The patient is awake, alert and oriented to person, place, and time with normal speech. Speech is clear. There is no facial asymmetry. Psychiatric: Appropriate mood and affect. Good judgement and insight. Review of Systems: REVIEW OF SYSTEMS: No fever, no chills, or fatigue HEENT: No sore throat, no earache, no congestion, no neck pain. Cardiac: Positive chest pain. No palpitations. Lungs: No shortness of breath, no cough. GI: Positive nausea, positive vomiting, no diarrhea, no constipation, no abdominal pain : No dysuria, frequency, or urgency. No hematuria. Musculoskeletal: No joint pain , no joint swelling, no extremity edema. Skin: No rash, no itching. Neuro: No headache, no dizziness, no weakness Past Medical History PAST MEDICAL HISTORY: Gallstones, Kidney Stones, Seizures Surgical History: Hysterectomy AGING BOX HAND History: No Pertinent AGING BOX HAND History Family History Family History: No family hx of Cancer, No family hx of DM, No family hx of Heart rex Social History Smoker: Non-Smoker Alcohol: Occasionally Drugs: Denies Drug Use Lives In: Home Was a procedure done? Was a procedure done?: No EKG EKG : Pulse Rate (adult): 78 [place]: Normal Block: None Hypertrophy: LAE, LVH ST: Normal Differential Dx Considerations may include: Pancreatitis, gastroenteritis, enteritis, urinary tract infection, electrolyte imbalance, medication side effect, other X-Ray, Labs, Meds, VS Vital Signs Date Time Temp Pulse Resp B/P (MAP) Pulse Ox O2 Delivery O2 Flow Rate FiO2 10/14/24 04:18 78 10/14/24 03:54 78 10/14/24 03:30 98.4 88 16 108/69 (82) 98 98.4 Lab Test 10/14/24 04:08 Range/Units White Blood Count 6.2 4.4-10.8 10^3/uL Red Blood Count 3.90 L 4.0-5.20 10^6/uL Hemoglobin 13.0 12.2-16.2 g/dL Hematocrit 38.7 36.0-46.0 % Mean Corpuscular Volume 99.3 80.0-100.0 fL Mean Corpuscular Hemoglobin 33.3 H 28.0-32.0 pg Mean Corpuscular Hemoglobin Concent 33.5 32.0-36.0 g/dL Red Cell Distribution Width 13.1 11.8-14.3 % Platelet Count 284 140-450 10^3/uL Mean Platelet Volume 8.9 6.9-10.8 fL Neutrophils (%) (Auto) 49.9 37.0-80.0 % Lymphocytes (%) (Auto) 40.7 10.0-50.0 % Monocytes (%) (Auto) 7.2 0.0-12.0 % Eosinophils (%) (Auto) 1.1 0.0-7.0 % Basophils (%) (Auto) 1.1 0.0-2.0 % Neutrophils # (Auto) 3.1 1.6-8.6 10 ^3/uL Lymphocytes # (Auto) 2.5 0.4-5.4 10 ^3/uL Monocytes # (Auto) 0.5 0-1.3 10 ^3/uL Eosinophils # (Auto) 0.1 0-0.8 10 ^3/uL Basophils # (Auto) 0.1 0-0.2 10 ^3/uL Nucleated Red Blood Cells 0.0 % Sodium Level 139 136-145 mmol/L Potassium Level 3.9 3.5-5.1 mmol/L Chloride Level 109 H 98-107 mmol/L Carbon Dioxide Level 21 20-31 mmol/L Anion Gap 9 5-15 Blood Urea Nitrogen 14 9-23 mg/dL Creatinine 0.67 0.550-1.02 mg/dL Glomerular Filtration Rate Calc 106 >90 mL/min BUN/Creatinine Ratio 20.9 H 10.0-20.0 Serum Glucose 101 74-106 mg/dL Calcium Level 9.2 8.7-10.4 mg/dL Troponin I High Sensitivity < 3 L </=34 ng/L Lipase 41 12-53 U/L Time of 1ST Reevaluation: 04:25 Reevaluation 1ST: Unchanged Patient Education/Counseling: Other (Eloped) Family Education/Counseling: No Family Present Departure 1 Departure Time of Disposition: 04:50 Impression: Primary Impression: Vomiting Additional Impression: Eloped from emergency department Disposition: 07 LEFT AWOL/ELOPED Condition: Stable Additional Instructions: ED DISCHARGE INSTRUCTIONS Instructions: Please read all instructions provided in this packet carefully. Although you have been discharged from the Emergency Department, this does not mean that you have a "clean bill of health". []No definitive diagnosis for your symptoms has been made today. It is possible that you are in the process of developing a serious illness. This is why you must return to the ED without fail if any new or worsening symptoms (especially if your symptoms include chest pain, trouble breathing, abdominal pain, fever, headache, confusion, trouble seeing, or trouble walking) It is also very important that you see a primary care doctor within the next 3-5 days to follow up. If you are unable to get an appointment, return to the ED for re-evaluation. Comments Was unable to locate patient for re-evaluation in the hospital lobby or parking lot. Critical Care Note Critical Care Time?: No Stability Stability form required: No Heart Score Heart Score: Heart Score Response (Comments) Value History N/A 0 EKG N/A 0 Age N/A 0 Risk Factors N/A 0 Troponin N/A 0 Total 0 I personally scribed for DENISSE MEI MD ([email or web address]) on 10/14/24 at 03:59. Electronically submitted by Rocky Mckinney ([email or web address]). I personally scribed for DENISSE MEI MD ([email or web address]) on 10/14/24 at 04:18. Electronically submitted by Rocky Mckinney ([email or web address]). DENISSE MEI MD Oct 14, 2024 03:59
[2024-10-14] MEDS ORDERED: SODIUM CHLORIDE 0.9% 1,000 ML IV ONE (04:00)
[2024-10-14] MEDS ORDERED: METOCLOPRAMIDE HCL 5MG/ml INJ 2ml VIAL IV ONE (04:00)
--- NOTE | 2024-10-14 04:01 | ECG ---
[facility] Test Date: 2024-10-14 Test Time: 03:54:23 Pat Name: ABY BERRIOS Department: ER Room: Gender: F Core Loader: MANAN : 1975 Requested By: DENISSE MEI Order Number: [id number] Reading MD: Rodolfo Chicas Measurements Intervals [place] Rate: 78 P: 67 UT: 151 QRS: 65 QRSD: 87 T: 12 QT: 401 QTc: 457 Interpretive Statements Sinus rhythm Probable left atrial enlargement Probable left ventricular hypertrophy Electronically Signed On 10-16-2024 20:43:41 PDT by Rodolfo Chicas Please click the below link to view image of tracing.
[2024-10-14 04:18] VITALS: PULSE 78
[2024-10-14 04:30] LABS: Basophils # (auto) 0.1 10 ^3/uL (0-0.2); Basophils % (auto) 1.1 % (0.0-2.0); Eosinophils # (auto) 0.1 10 ^3/uL (0-0.8); Eosinophils % (auto) 1.1 % (0.0-7.0); Hematocrit 38.7 % (36.0-46.0); Lymphocytes # (auto) 2.5 10 ^3/uL (0.4-5.4); Lymphocytes % (auto) 40.7 % (10.0-50.0); Mean Corpuscular Hemoglobin 33.3 pg (28.0-32.0); Mean Corpuscular Hgb Conc. 33.5 g/dL (32.0-36.0); Mean Corpuscular Volume 99.3 fL (80.0-100.0); Monocytes # (auto) 0.5 10 ^3/uL (0-1.3); Monocytes % (auto) 7.2 % (0.0-12.0); Neutrophils # (auto) 3.1 10 ^3/uL (1.6-8.6); Neutrophils % (auto) 49.9 % (37.0-80.0); Platelet Count (auto) 284 10^3/uL (140-450); Red Cell Distribution Width 13.1 % (11.8-14.3); White Blood Cell 6.2 10^3/uL (4.4-10.8)
[2024-10-14 04:38] LABS: Anion Gap 9 (5-15); Carbon Dioxide 21 mmol/L (20-31); Potassium 3.9 mmol/L (3.5-5.1); Sodium 139 mmol/L (136-145)
[2024-10-14 04:39] LABS: Calcium 9.2 mg/dL (8.7-10.4); Chloride 109 mmol/L (98-107)
[2024-10-14 04:44] LABS: BUN/Creatinine Ratio 20.9 (10.0-20.0); Blood Urea Nitrogen 14 mg/dL (9-23); Glucose 101 mg/dL (74-106); Lipase 41 U/L (12-53)
== END 2024-10-16 01:15 | disposition left against medical advice (07) ==
LOC: ER 03:23
DX: R11.2 Nausea with vomiting, unspecified (principal); R07.9 Chest pain, unspecified; R10.9 Unspecified abdominal pain; Z90.710 Acquired absence of both cervix and uterus; Z86.69 Personal history of other diseases of the nervous system and sense organs; Z87.442 Personal history of urinary calculi; Z79.899 Other long term (current) drug therapy; Z88.1 Allergy status to other antibiotic agents; Z88.8 Allergy status to other drugs, medicaments and biological substances
CPT/HCPCS: 36415; 80048; 83690; 84484; 85025; 93005

== ENCOUNTER 2025-05-14 09:43 | Emergency (ER) | payer BC, OTHER ==
[~2025-05-14] VITALS: Ht 157.5 cm; Wt 104.1 kg
[2025-05-14] MEDS: KETOROLAC TROMETH 60MG/2ML VIAL IM ONE (10:35)
--- NOTE | 2025-05-14 10:38 | ED.PDOC ---
Back pain HPI HPI Comments A 50 YEAR OLD MALE PRESENTS TO THE ED WITH COMPLAINT OF RIGHT KNEE PAIN AND LOWER BACK PAIN THAT RADIATES DOWN RIGHT LEG. PATIENT STATES SHE HAS BEEN EXPERIENCING RIGHT KNEE PAIN AND LOWER BACK PAIN THAT RADIATES DOWN HER RIGHT LEG FOR THE PAST 1 WEEK. PATIENT ALSO NOTES THAT SHE HAS HAD MILD DIARRHEA FOR THE PAST 3 DAYS AND WOULD LIKE MEDICATION FOR THIS ISSUE. PATIENT DENIES SADDLE ANESTHESIA, URINARY INCONTINENCE, BOWEL INCONTINENCE, INJURY TO RIGHT KNEE, FEVER, CHILLS, SHORTNESS OF BREATH, CHEST PAIN, ABDOMINAL PAIN, NAUSEA, VOMITING, HEADACHE, OR OTHER COMPLAINTS. NO OTHER SYMPTOMS OR MODIFYING FACTORS AT THIS TIME. PATIENT IS ALERT, ORIENTED X 4, AND HAS STEADY GAIT. Chief Complaint: Lower Extremity Time Seen by MD: 10:03 Primary Care Provider: VITALY Reviewed Notes: Nurses Notes, Medications, Allergies Allergies: Coded Allergies: Ciprofloxacin (Unverified Allergy, Intermediate, Hives,fever,N/V, 11/21/22) Phenytoin (Verified Allergy, Intermediate, 11/22/22) Carbamazepine (Unverified Allergy, Unknown, 04/04/18) Home Meds Active Scripts Methocarbamol (Methocarbamol) 750 Mg Tab, 750 MG PO BID, #20 TAB Prov:SYD GARBER 05/14/25 Ibuprofen (Ibuprofen) 800 Mg Tab, 1 TAB PO TID, #30 TAB Prov:SYD GARBER 05/14/25 Cyclobenzaprine HCl (Cyclobenzaprine Hydrochlo) 5 Mg Tab, 5 MG PO HS for 5 Days, #5 TAB 1 Refill Prov:LEN BETANCOURT 10/13/24 Ibuprofen Micronized (Ibuprofen) 600 Mg Tab, 600 MG PO Q6HPRN PRN for 15 Days, #60 TAB Prov:JOSEPH TONY 07/02/24 Ondansetron (Zofran) 4 Mg Tab, 4 MG PO Q4HPRN PRN, #30 TAB Prov:SILVER BARAJAS DO 11/22/22 Ibuprofen (Ibuprofen) 800 Mg Tab, 800 MG PO TID PRN for 15 Days, #40 TAB Prov:SILVER BARAJAS DO 11/22/22 Hydrocodone-Acetaminophen (Hydrocodone Bitartrate/AC 5-325 mg) 1 Tab Tab, 1 TAB PO Q6HPRN PRN for 5 Days, #20 TAB Prov:SILVER BARAJAS DO 11/22/22 Docusate Sodium (Colace) 100 Mg Cap, 1 CAP PO BID, #60 CAP 2 Refills Prov:SILVER BARAJAS DO 11/22/22 Hydrocodone-Acetaminophen (Hydrocodone Bitartrate/AC 10-325 mg) 1 Tab Tab, 1 TAB PO Q8HP PRN, #15 TAB Prov:DUTCH GIBSON PAC 10/15/22 Reported Medications Phenobarbital (PHENOBARBITAL) 32.4 Mg Tb, 30 MG PO TID, TAB 11/22/22 Phenobarbital (PHENOBARBITAL) 32.4 Mg Tb, 30 MG PO TID 04/05/18 Information Source: Patient Mode of Arrival: Ambulatory Timing: Days Duration: Since onset, Days Location of Back pain: (B) Lumbar Radiates to: Anterior: (R) Buttocks, (R) Calf, (R) Thigh Radiates to: Posterior: (R) Buttocks, (R) Calf, (R) Thigh Radiates to: Medial: (R) Buttocks, (R) Calf, (R) Thigh Radiates to: Lateral: (R) Buttocks, (R) Calf, (R) Thigh Severity: Moderate Prehospital treatment: None Quality: Aching, Cramping Onset: Spontaneous History of: None Modifying Factors: Movement, Twisting Associated signs and symptoms: None Past Medical History PAST MEDICAL HISTORY: Gallstones, Kidney Stones, Seizures Surgical History: Hysterectomy APPLICATION COUNSELOR History: No Pertinent APPLICATION COUNSELOR History Family History Family History: No family hx of Cancer, No family hx of DM, No family hx of Heart rex Social History Smoker: Non-Smoker Alcohol: Occasionally Drugs: Denies Drug Use Lives In: Home Constitutional: denies: chills, diaphoresis, fatigue, fever, malaise, sweats, weakness, others EENTM: denies: blurred vision, double vision, ear bleeding, ear discharge, ear drainage, ear pain, ear ringing, eye pain, eye redness, hearing loss, mouth pain, mouth swelling, nasal discharge, nose bleeding, nose congestion, nose pain, photophobia, tearing, throat pain, throat swelling, voice changes, others Respiratory: denies: cough, hemoptysis, orthopnea, SOB at rest, shortness of breath, SOB with excertion, stridor, wheezing, others Cardiovascular: denies: chest pain, dizzy spells, diaphoresis, Dyspnea on exertion, edema, irregular heart beat, left arm pain, lightheadedness, palpitations, PND, syncope, others Gastrointestinal: reports: diarrhea; denies: abdomen distended, abdominal pain, blood streaked bowels, constipated, dysphagia, difficulty swallowing, hematemesis, melena, nausea, poor appetite, poor fluid intake, rectal bleeding, rectal pain, vomiting, others Genitourinary: denies: abnormal vagina bleeding, burning, dyspareunia, dysuria, flank pain, frequency, hematuria, incontinence, pain, , vagina discharge, urgency, others Neurological: denies: dizziness, fainting, headache, left sided numbness, left sided weakness, numbness, paresthesia, pre-existing deficit, right sided numbness, right sided weakness, seizure, speech problems, tingling, tremors, weakness, others Musculoskeletal: reports: back pain (LOWER BACK PAIN THAT RADIATES DOWN RIGHT LEG), joint pain, joint swelling, muscle pain, others (RIGHT KNEE PAIN); denies: gout, muscle stiffness, neck pain Integumetry: denies: bruises, change in color, change in hair/nails, dryness, laceration, lesions, lumps, rash, wounds, others Allergic/Immunocompromised: denies: Difficulty Healing, Frequent Infections, Hives, Itching, others Hematologic/Lymphatic: denies: anemia, blood clots, easy bleeding, easy bruising, swollen glands, others Endocrine: denies: excessive hunger, excessive sweating, excessive thirst, excessive urination, flushing, intolerance to cold, intolerance to heat, unexplained weight gain, unexplained weight loss, others Psychiatric: denies: anxiety, bipolar disorder, depression, hopeless, panic disorder, schizophrenia, sleepless, suicidal, others All Other Systems: Reviewed and Negative Physical Exam General Appearance: Mild Distress, Obese HEENT: Normal ENT Inspection, PERRL/EOMI, Pharynx Normal, TMs Normal Neck: Full Range of Motion, Non-Tender, Normal, Normal Inspection Respiratory: Chest Non-Tender, Lungs Clear, No Accessory Muscle Use, No Respiratory Distress, Normal Breath Sounds Cardiovascular: No Edema, No JVD, No Murmur, No Gallop, Normal Peripheral Pulses, Regular Rate/Rhythm Breast Exam: Deferred Gastrointestinal: No Organomegaly, Non Tender, No Pulsatile Mass, Normal Bowel Sounds, Soft Genitalia: Deferred Pelvic: Deferred Rectal: Deferred Extremities: No calf tenderness, Normal capillary refill, Normal range of motion, No pedal edema, Tender (AND SWELLING WITH MILD EFFUSION ON RIGHT KNEE, NO BONY TENDERNESS AND DEFORMITY. ) Musculoskeletal : Location: Bilateral Extremity Location: Back Apperance: Tenderness: Moderate (MUSCLE SPASM ON LOWER BACK, NO BONY TENDER NESS AND DEFORMITY. ) Neurologic: Alert, performance analyst II-XII nml as Tested, No Motor Deficits, Normal Affect, Normal Mood, No Sensory Deficits Cerebellar Function: Normal Reflexes: Normal Skin: Dry, Normal Color, Warm Peripheral Pulses: 2+ carotid (R), 2+ carotid (L), 2+ dorsalis pedis (R), 2+ dorsalis pedis (L) Lymphatic: No Adenopathy Was a procedure done? Was a procedure done?: No Back Pain Differential Dx Differential Diagnosis: DJD, Musculoskeletal Pain, Strain Other Differential Diagnosis DDD, LUMBAR RADICULOPATHY X-Ray, Labs, Meds, VS Vital Signs Date Time Temp Pulse Resp B/P (MAP) Pulse Ox O2 Delivery O2 Flow Rate FiO2 05/14/25 09:49 98.0 99 18 128/66 95 98.0 Current Medications Medications (Trade) Dose Ordered Sig/Zeb Route Start Time Stop Time Status Last Admin Ketorolac Tromethamine (Toradol Injection) 60 mg ONCE ONCE IM 05/14/25 10:30 05/14/25 10:31 DC 05/14/25 10:35 INDICATION: PAIN, NO INJURY TECHNIQUE: 3 views of the lumbar spine were obtained. COMPARISON: XY KUB ABDOMEN SINGLE VIEW on DOS: 08/23/23, US PELVIC on DOS: 01/12/23, CT ABD/PEL on DOS: 11/28/22, US PELVIC on DOS: 09/11/22 FINDINGS: There are no acute fractures or subluxations. Multilevel degenerative changes of the spine. Grade 1 anterolisthesis of L4 on L5. IMPRESSION: No acute fracture or subluxation. ATED BY: CAR DUENAS MD DICTATED DATE/TIME: 05/14/25 1111 SIGNED BY: CAR DUENAS MD SIGNED DATE/TIME: 05/14/25 1111 CC: CLINICAL INDICATION: PAIN, NO INJURY TECHNIQUE: XY R KNEE 3V XRAY Comparison: CT HEAD WITHOUT CONTRAST on DOS: 10/12/24, US GALLBLADDER on DOS: 07/01/24, US ECHO 2D MODE CARDIAC DOP on DOS: 07/01/24, CT SINUS WITHOUT CONTRAST on DOS: 10/10/23, US ABDOMEN COMPLETE SONOGRAM on DOS: 09/07/23 FINDINGS/IMPRESSION: : There is no evidence of acute fracture or dislocation. Small joint effusion. ATED BY: CAR DUENAS MD DICTATED DATE/TIME: 05/14/25 1110 SIGNED BY: CAR DUENAS MD SIGNED DATE/TIME: 05/14/25 1110 CC: X-Ray, Labs, Meds, VS Comment EXTERNAL MEDICAL RECORDS REVIEWED: [NONE] INDEPENDENT HISTORIANS: [NONE] SOCIAL DETERMINANTS OF HEALTH: [NONE] LABS ORDERED: NONE REVIEWED AND INTERPRETED RESULTS: NONE IMAGING ORDERED: XR KNEE RT, XR L-SPINE TREATMENTS ORDERED: TORADOL 60 MG IM PROCEDURES PERFORMED: NONE CRITICAL CARE TIME: NONE I HAVE DISCUSSED THE PATIENT WITH THE ATTENDING PHYSICIAN DR. NAVA AND HE AGREES WITH THE PATIENT'S PLAN OF CARE AND DISPOSITION. BASED ON HISTORY OF PRESENT ILLNESS, AND PHYSICAL EXAM, PATIENT WILL BE DISCHARG ED HOME. DISCUSSED PLAN FOR DISCHARGE HOME WITH RX [IBUPROFEN 800 MG AND ROBAXIN]. MEDICATION WARNINGS GIVEN. SHARED DECISION MAKING: DISCUSSED WITH PATIENT THAT THEIR WORKUP WAS NORMAL. PATIENT INSTRUCTED TO FOLLOW UP WITH PRIMARY CARE PROVIDER IN 1-2 DAYS FOR RE- EVALUATION OF SYMPTOMS. PATIENT VERBALIZES UNDERSTANDING TO RETURN TO ED FOR NEW OR WORSENING SYMPTOMS OR IF FOLLOW UP WITH PCP CANNOT BE OBTAINED. PATIENT FEELS COMFORTABLE GOING HOME AT THIS TIME. ALL QUESTIONS ADDRESSED AT TIME OF DISCHARGE. Images Reviewed?: Images reviewed and evaluated by me Time of 1ST Reevaluation: 11:54 Reevaluation 1ST: Improved Patient Education/Counseling: Diagnosis, Treatment, Need For Follow Up Family Education/Counseling: Diagnosis, Treatment, Need For Follow Up Medical Screening: No EMC Exist At This Time SEPSIS Sepsis Screen Date sepsis recognized/suspect: May 14, 2025 Time Sepsis recognized/suspect: 951 Recent Procedure: No On Antibiotic Therapy: No Respiratory Rate >20: No Heart Rate >90: Yes Temp<36 C (96.8 F) or >38.3 C: No SBP <90 or MAP <65 mmHG: No New Acute Mental Status Change: No Is the patient on CPAP, BIPAP,: No Physician Orders R Knee 3v Xray (05/14/25 10:28) Lumbar Spine 3 View (05/14/25 10:28) Vital Signs Date Time Temp Pulse Resp B/P (MAP) Pulse Ox O2 Delivery O2 Flow Rate FiO2 05/14/25 09:49 98.0 99 18 128/66 95 98.0 Medications Medications Dose Ordered Sig/Zeb Route Start Time Stop Time Status Last Admin Dose Admin Ketorolac Tromethamine 60 mg ONCE ONCE IM 05/14/25 10:30 05/14/25 10:31 DC 05/14/25 10:35 Departure 1 Departure Time of Disposition: 12:00 Impression: Primary Impression: DDD (degenerative disc disease), lumbar Qualified Codes: M51.362 - Other intervertebral disc degeneration, lumbar region with discogenic back pain and lower extremity pain Additional Impressions: Lumbar radiculopathy Internal derangement of right knee Disposition: 01 HOME / SELF CARE / HOMELESS Condition: Stable Additional Instructions: FOLLOW-UP WITH PCP IN 1 TO 2 DAYS. TAKE MEDICATIONS PRESCRIBED. RETURN TO ED FOR ANY NEW OR WORSENING SYMPTOMS. e-Prescriptions Methocarbamol (Methocarbamol) 750 Mg Tab 750 MG PO BID, #20 TAB Prov: SYD GARBER 05/14/25 Ibuprofen (Ibuprofen) 800 Mg Tab 1 TAB PO TID, #30 TAB Prov: SYD GARBER 05/14/25 Discharged With: Self Critical Care Note Critical Care Time?: No Stability Stability form required: No I personally scribed for SYD GARBER ([email or web address]) on 05/14/25 at 10:38. Electronically submitted by Joni Roman ([email or web address]). I personally scribed for SYD GARBER ([email or web address]) on 05/14/25 at 11:44. Electronically submitted by Joni Roman ([email or web address]). SYD GARBER May 14, 2025 10:38
--- NOTE | 2025-05-14 11:13 | DVH ---
INDICATION: PAIN, NO INJURY TECHNIQUE: 3 views of the lumbar spine were obtained. COMPARISON: XY KUB ABDOMEN SINGLE VIEW on DOS: 08/23/23, US PELVIC on DOS: 01/12/23, CT ABD/PEL on DOS: 11/28/22, US PELVIC on DOS: 09/11/22 FINDINGS: There are no acute fractures or subluxations. Multilevel degenerative changes of the spine. Grade 1 anterolisthesis of L4 on L5. IMPRESSION: No acute fracture or subluxation.
--- NOTE | 2025-05-14 11:13 | DVH ---
CLINICAL INDICATION: PAIN, NO INJURY TECHNIQUE: XY R KNEE 3V XRAY Comparison: CT HEAD WITHOUT CONTRAST on DOS: 10/12/24, US GALLBLADDER on DOS: 07/01/24, US ECHO 2D MODE CARDIAC DOP on DOS: 07/01/24, CT SINUS WITHOUT CONTRAST on DOS: 10/10/23, US ABDOMEN COMPLETE SONOGRAM on DOS: 09/07/23 FINDINGS/IMPRESSION: : There is no evidence of acute fracture or dislocation. Small joint effusion.
[2025-05-14 11:30] VITALS: BP 128/66; PULSE 99; RESP 18; TEMP 98; O2SAT 95
[2025-05-14] MEDS ORDERED: IBUP-1456 PO (11:51)
[2025-05-14] MEDS ORDERED: METH-1182 PO (11:51)
== END 2025-05-14 11:57 | disposition home or self-care (01) ==
LOC: ER 09:43
DX: M51.16 Intervertebral disc disorders with radiculopathy, lumbar region (principal); M23.91 Unspecified internal derangement of right knee; F10.90 Alcohol use, unspecified, uncomplicated; Z79.899 Other long term (current) drug therapy; Z90.710 Acquired absence of both cervix and uterus; Z88.1 Allergy status to other antibiotic agents; Z87.442 Personal history of urinary calculi; Z79.1 Long term (current) use of non-steroidal anti-inflammatories (NSAID)
CPT/HCPCS: 72100; 73562; 96372; 99284; J1885